=== PATIENT | female | born 1955 | race Caucasian/White ===

== ENCOUNTER → 2021-08-18 15:30 | Outpatient (CLI) | payer MEDICARE, OTHER, SELFPAY ==
--- NOTE | ~2021-08-18 | XR_ITS ---
XR chest 2V DATE: 08/18/2021 15:54 INDICATION: Shortness of breath TECHNIQUE: 2 views COMPARISON: None FINDINGS: There is a large hiatal hernia. 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 Heart size appears within normal range. No hilar or med iastinal enlargement. No pulmonary infiltrate or consolidation, pleural effusion or pulmonary vascula r congestion or pneumothorax is detected. Stenosis anterior cervical spine surgical fusion. IMPRESSION: No active cardiopulmonary disease Large hiatal hernia Reviewed, dictated and finalized at location A. ACCOUNT MANAGER
== END ==
PROVIDERS: PCP Family Medicine; Visit Provider Physician Assistant
DX: R06.02 Shortness of breath (principal); K44.9 Diaphragmatic hernia without obstruction or gangrene
CPT/HCPCS: 71046

== ENCOUNTER → 2021-09-03 10:12 | Outpatient (CLI) | payer MEDICARE, OTHER, SELFPAY ==
--- NOTE | ~2021-09-03 | XR_ITS ---
EXAMINATION: XR UGIAC wo kub DATE: 09/03/2021 10:58 INDICATION: Diaphragmatic hernia without obstruction TECHNIQUE: Thick barium contrast with gas effervescent crystals were administered orally. Fluoroscop ic images of the esophagus, stomach, and proximal duodenum were obtained in various projections. The reafter, overhead images of the abdomen were performed. 1.2 minutes of fluroscopy. DAP 10.2. 59 image s. FINDINGS: No prior studies for comparison. There are tertiary contractions of the distal esophagus with mild disordered peristalsis distally. No obstruction. There is a moderate size paraesophageal hernia. Reflux is noted in the esophagus. The gastric folds are normal. The proximal duodenum is also normal in appearance. IMPRESSION: 1. Moderate-sized paraesophageal hernia with gastroesophageal reflux. 2: Tertiary contractions of the distal esophagus with mildly disordered peristalsis. No obstruction. Reviewed, dictated and finalized at location B. IMPRESSION: 1. Moderate-sized paraesophageal hernia with gastroesophageal reflux. 2: Tertiary contractions of the distal esophagus with mildly disordered perist alsis. No obstruction.
== END ==
PROVIDERS: PCP Family Medicine; Visit Provider Surgery
DX: K44.9 Diaphragmatic hernia without obstruction or gangrene (principal); K21.9 Gastro-esophageal reflux disease without esophagitis; R13.10 Dysphagia, unspecified
CPT/HCPCS: 74246

== ENCOUNTER 2021-09-09 00:17 | Day surgery (SDC) | payer MEDICARE, OTHER, SELFPAY ==
[2021-08-27 14:59] VITALS: BMI 34.2
[2021-09-09 09:30] VITALS: BP 149/80; PULSE 78; RESP 18; TEMP 36.3; O2SAT 98
[2021-09-09] MEDS: LACTATED RINGERS 1,000 ML 150 ML IV CONT (09:44)
--- NOTE | 2021-09-09 09:44 | WPDANESEPPF ---
Anes - Initial Pre Proc Eval Procedure: Operation Date: 09/09/21 10:45 Proposed Procedures p Esophagogastroduodenoscopy & Screening Colonoscopy - Gulshan Paz MD Date/Time: 09/09/21 09:44 Surgeon: Gulshan Paz MD Pre Op Diagnosis: neoplasm screening Patient Data Age: 66 Gender: F Height: 1.63 m Weight: 91.2 kg Last Vital Signs Temp 36.3 C L 09/09/21 09:30 Pulse 78 09/09/21 09:30 Resp 18 09/09/21 09:30 BP 149/80 H 09/09/21 09:30 Pulse Ox 98 09/09/21 09:30 Allergies Allergy/AdvReac Type Severity Reaction Status Date / Time Iodine and Iodide Containing Allergy Unknown Verified 09/09/21 09:21 Produc Home Medications Medication Instructions Recorded Confirmed Type furosemide 40 mg tablet 40 mg PO QAM #90 tablet 08/02/20 09/09/21 Rx potassium chloride 10 mEq 10 meq PO DAILY #90 tablet 08/02/20 09/09/21 Rx tablet,extended release Bifidobacterium infantis 4 mg 4 mg PO DAILY 03/26/21 09/09/21 History capsule ergocalciferol (vitamin D2) 1,250 1,250 mcg PO WEEKLY #12 cap 03/26/21 09/09/21 Rx mcg (50,000 unit) capsule rosuvastatin 20 mg tablet 20 mg PO DAILY #90 tablet 03/26/21 09/09/21 Rx albuterol sulfate 90 mcg/actuation See Rx Instructions .ROUTE 06/18/21 09/09/21 Rx aerosol inhaler .COMPLEX #25.5 g montelukast 10 mg tablet 10 mg PO DAILY #90 tablet 07/05/21 09/09/21 Rx escitalopram oxalate 20 mg tablet 20 mg PO DAILY #90 tablet 08/01/21 09/09/21 Rx levothyroxine 125 mcg tablet 125 mcg PO DAILY #90 tablet 08/01/21 09/09/21 Rx losartan 25 mg tablet 25 mg PO DAILY #90 tablet 08/01/21 09/09/21 Rx pantoprazole 40 mg tablet,delayed 40 mg PO BID #180 tablet 08/01/21 09/09/21 Rx release fluticasone propionate 115 2 puff INHALATION BID #12 g 08/18/21 09/09/21 Rx mcg-salmeterol 21 mcg/actuation HFA inhaler alprazolam 0.5 mg PO DAILY PRN 08/27/21 09/09/21 History Patient hx anesthesia problems: post op nausea/vomiting Family hx anesthesia problems: none Results Review: All pre-operative results and documents have been reviewed as part of the pre-operative evaluation. [facility] Past Medical History Medical History Anxiety Chronic allergic rhinitis Gastroesophageal reflux History of ovarian cyst Hx of endometriosis Hyperlipidemia Hypertension Hypothyroidism Iron deficiency anemia Irritable bowel syndrome Spinal stenosis Surgical History Surgical History H/O cervical discectomy H/O: hysterectomy History of appendectomy History of esophagogastroduodenoscopy (EGD) History of incisional hernia repair Date unknown - incision from previous emergent History of tonsillectomy Hx of section Hx of neck surgery S/p bilateral myringotomy with tube placement Family History Family History Father Hypertension Heart disease Hyperlipidemia Depression Malignant neoplasm of prostate Cerebrovascular accident Sibling Hypertension Hyperlipidemia Depression Cerebrovascular accident Sibling Depression Bipolar disorder Hypertension Hyperlipidemia Other Kidney stone Seizure Skin cancer Social History Social History Smoking status: Never smoker Second hand tobacco smoke exposure: No Alcohol intake: current Drinks per week: 7 Alcohol use details: wine Substance use: never Substance use type: does not use Living arrangements: with family Gender identity (if verbalized by the patient): Female Spiritual care concerns: No Anes - Eval Final PreProcedure Day of Procedure 09/09/21 09:44 Patient weight: obese Heart: regular rate and rhythm Lungs: clear to auscultation Airway: Mallampati scale class II Neurological: alert and oriented Last oral intake: >/= 8 hours ASA classificat
--- NOTE | 2021-09-09 09:51 | WPDGICN ---
Assessment and Plan Assessment and plan (1) Paraesophageal hiatal hernia: Code(s): K44.9 - Diaphragmatic hernia without obstruction or gangrene Status: Acute Assessment and Plan: Patient recently found to have paraesophageal hiatal hernia. Surgical repair is being considered. EGD is requested prior to this. (2) Gastroesophageal reflux: Qualifiers: Esophagitis presence: esophagitis presence not specified Qualified Code(s): K21.9 - Gastro-esophageal reflux disease without esophagitis Code(s): K21.9 - Gastro-esophageal reflux disease without esophagitis Status: Acute Assessment and Plan: Patient has ongoing chronic GE reflux disease. Currently maintained on pantoprazole 40mg p.o. b.i.d. with resolution of heartburn and reflux. Plan to continue this medication. Because of chronicity of symptoms an EGD will be performed. Also to evaluate hiatal hernia. (3) History of colon polyps: Code(s): Z86.010 - Personal history of colonic polyps Status: Acute Assessment and Plan: Patient with history of recurrent colon polyps on multiple occasions in the past. Plan is for surveillance colonoscopy now and at 3 year intervals in the future. GI Consult Note Consult date/time: 09/09/21 09:51 HPI: Brigid Barrios is a 66 year old female Presents for GI endoscopy with both EGD and colonoscopy. Patient has a distant history of colon polyps in the past she. Previously followed in [place] she has had multiple colonoscopies. She states polyps were found at every exam. Most recent colonoscopy 3 years ago revealed colon polyps. Patient reports that her current weight appetite and bowel movements are normal. She denies abdominal pain. She has had no bleeding. Family history is noncontributory. Patient does have history of acid reflux disease as well. She chronically takes pantoprazole 40mg p.o. daily for control of this. She recently experienced a bout of bronchitis and COVID. Because of prolonged shortness of breath a CT scan was performed. This revealed a hiatal hernia. Upper GI was subsequently performed revealing a paraesophageal type hiatal hernia. Surgery has been consulted in the an EGD is requested prior to surgical consideration. Review of Systems Review of Systems: All systems reviewed & are unremarkable except as noted in HPI and below PMFSH Past Medical History Medical History Anxiety Chronic allergic rhinitis Gastroesophageal reflux History of ovarian cyst Hx of endometriosis Hyperlipidemia Hypertension Hypothyroidism Iron deficiency anemia Irritable bowel syndrome Spinal stenosis Surgical History Surgical History H/O cervical discectomy H/O: hysterectomy History of appendectomy History of esophagogastroduodenoscopy (EGD) History of incisional hernia repair Date unknown - incision from previous emergent History of tonsillectomy Hx of section Hx of neck surgery S/p bilateral myringotomy with tube placement Family History Family History Father Hypertension Heart disease Hyperlipidemia Depression Malignant neoplasm of prostate Cerebrovascular accident Sibling Hypertension Hyperlipidemia Depression Cerebrovascular accident Sibling Depression Bipolar disorder Hypertension Hyperlipidemia Other Kidney stone Seizure Skin cancer Social History Social History Smoking status: Never smoker Second hand tobacco smoke exposure: No Alcohol intake: current Drinks per week: 7 Alcohol use details: wine Substance use: never Substance use type: does not use Living arrangements: with family Gender identity (if verbalized by the patient): Female Spiritual car
--- NOTE | 2021-09-09 10:59 | SUR.OPER ---
EGD end: 105 COLONOSCOPY start: 1058
[2021-09-09 11:15] VITALS: BP 128/76; PULSE 69; RESP 18; O2SAT 98
[2021-09-09 11:25] VITALS: BP 143/87; PULSE 66; RESP 19; O2SAT 97
[2021-09-09 11:35] VITALS: BP 157/68; PULSE 65; RESP 21; O2SAT 98
== END 2021-09-09 11:49 | disposition home or self-care (01) ==
PROVIDERS: PCP Family Medicine; Visit Provider Internal Medicine Gastroenterology
PROC: 0DJ08ZZ Inspection of Upper Intestinal Tract, Via Natural or Artificial Opening Endoscopic (ICD-10-PCS; CPT 43235; principal; 2021-09-09 10:45)
DX: Z12.11 Encounter for screening for malignant neoplasm of colon (principal); D12.3 Benign neoplasm of transverse colon; K57.30 Diverticulosis of large intestine without perforation or abscess without bleeding; K64.8 Other hemorrhoids; K44.9 Diaphragmatic hernia without obstruction or gangrene; K21.9 Gastro-esophageal reflux disease without esophagitis; F41.9 Anxiety disorder, unspecified; E78.5 Hyperlipidemia, unspecified; I10 Essential (primary) hypertension; E03.9 Hypothyroidism, unspecified; D50.0 Iron deficiency anemia secondary to blood loss (chronic); N80.9 Endometriosis, unspecified; K58.9 Irritable bowel syndrome, unspecified; M48.00 Spinal stenosis, site unspecified; Z86.16 Personal history of COVID-19; Z79.51 Long term (current) use of inhaled steroids; E66.9 Obesity, unspecified; Z68.34 Body mass index [BMI] 34.0-34.9, adult
CPT/HCPCS: 45385; 43235; 88305; J2704; J7120

== ENCOUNTER 2021-10-22 09:17 | Outpatient (CLI) | payer MEDICARE, OTHER, SELFPAY ==
--- NOTE | 2021-10-22 09:32 | ECG_ITS ---
Measurements Intervals [place] Rate: 66 P: 14 [place]: 173 QRS: 14 QRSD: 86 T: 56 QT: 373 QTc: 393 Interpretive Statements SINUS RHYTHM LEFT VENTRICULAR HYPERTROPHY BASELINE ARTIFACT- I, III, AVR, AVL, AVF, V4 BORDERLINE ECG Electronically Signed On 10-22-2021 9:57:31 CDT by Jagdish Avila D.O.
[2021-10-22 10:00] LABS: Anion Gap 5 mmol/L (8-16); Blood Urea Nitrogen 21 mg/dL (7-17); Calcium 8.8 mg/dL (8.4-10.2); Carbon Dioxide 29 mmol/L (22-30); Chloride 105 mmol/L (98-107); Estimated Glomerular Filt Rate > 60; Glucose 122 mg/dL (65-110); Potassium 4.4 mmol/L (3.4-5.0); Sodium 139 mmol/L (137-145)
== END 2021-10-22 09:18 | disposition home or self-care (01) ==
PROVIDERS: Anesthesiology; PCP Family Medicine; Visit Provider Surgery
DX: Z01.818 Encounter for other preprocedural examination (principal); K44.9 Diaphragmatic hernia without obstruction or gangrene; I10 Essential (primary) hypertension
CPT/HCPCS: 36415; 80048; 86850; 86900; 86901; 93005

== ENCOUNTER 2021-11-01 14:20 | Observation (INO) | payer MEDICARE, OTHER, SELFPAY ==
--- NOTE | 2021-10-16 13:48 | PC.NURSE ---
Report to the Outpatient Waiting Room, entrance under the green pavilion located off [facility], at time _0600 on date _10/31/21 . OR Time: _729 . - You and your visitor will be asked a series of questions to screen for COVID 19 for your protection. - Only one visitor is allowed at this time. - The patient visitor is requested to leave or wait in car when not with patient. - A mask is required within the hospital. Patients may have clear liquids (water, carbonated beverages, clear teas, apple juice) until 3 hours prior to surgery with a maximum of 20 ounces. - No food from midnight until time of surgery - Infants may have breast milk until 4 hours before surgery, infant formula 6 hours prior to surgery. - Children will be allowed to drink immediately following surgery. If applicable, please bring a bottle or sippy cup to assist with drinking. Juice, water, soda, and popsicles are readily available. For infants on formula, please bring formula the day of surgery. Pacifiers are allowed. Take the following medications with a SIP of water the morning of surgery: __INHALER,ALPROAZOLAM,ESCITALOPRAM,,LEVOTHYROXINE Medications to discontinue per physician ALL VITAMINS AND SUPPLEMENTS 3 DAYS PRE OP Date to take last dose___10/27/21 HIBICLENS SHOWER MORNING OF SURGERY Please no make-up, nail yakut, hairspray, perfume, deodorant, or body powder the day of surgery. No jewelry (including any body piercings) or valuables the day of surgery, leave them at home. Please take a shower or bath the night before, or the morning of, surgery with an antibacterial soap. Wear comfortable, loose fitting clothing. Children are encouraged to wear pajamas. - Jewelry must be removed prior to entering the operating room. Rings and piercings that are not removed may be cut off. - The hospital will not accept responsibility for valuables. - Please leave all valuables, including medications, at home the day of surgery. If you are going home after surgery, a licensed jitney driver must drive you home. - NO public transportation without another adult. - We recommend that an adult stay with you for 24 hours following discharge. - We also recommend that you do not drive, make important decision, drink alcoholic beverages, or take any drugs that were not prescribed by your health care provider for at least 24 hours after your discharge time. For Pediatric surgeries, we recommend two adults accompany the child home (only one inside the building at this time). Follow any additional instructions given to you from your surgeon. If you or anyone in your household have experienced Covid symptoms in the past week, please notify your surgeon or the nurse liaison at the phone number below for possible testing. Telephone instructions given to _PATIENT and asked if any additional questions and then verbalized understanding. Patient advised to call surgeon office or pre surgery nurse liaison [phone] if any additional questions.
[2021-10-16 13:57] VITALS: BMI 34.1
[2021-10-31] VITALS (22 sets, daily range): BP systolic 134–185; BP diastolic 63–97; PULSE 67–99; RESP 12–20; TEMP 36.2–37; O2SAT 94–98
--- NOTE | 2021-10-31 06:29 | WPDANESEPPF ---
Anes - Initial Pre Proc Eval Procedure: Operation Date: 10/31/21 07:30 Proposed Procedures p Laparoscopic Paraesophageal Hernia Repair with Rachael Fundoplication - Stu Santana DO Date/Time: 10/31/21 06:29 Surgeon: Stu Santana DO Pre Op Diagnosis: paraesophageal hiatal hernia Patient Data Age: 66 Gender: F Height: 1.63 m Weight: 90.26 kg Allergies Allergy/AdvReac Type Severity Reaction Status Date / Time Iodine and Iodide Containing Allergy Severe Hives Verified 10/31/21 06:06 Produc Home Medications Medication Instructions Recorded Confirmed Type furosemide 40 mg tablet 40 mg PO QAM #90 tablet 08/02/20 10/31/21 Rx Bifidobacterium infantis 4 mg 4 mg PO DAILY 03/26/21 10/31/21 History capsule ergocalciferol (vitamin D2) 1,250 1,250 mcg PO WEEKLY #12 cap 03/26/21 10/31/21 Rx mcg (50,000 unit) capsule rosuvastatin 20 mg tablet 20 mg PO DAILY #90 tablet 03/26/21 10/31/21 Rx albuterol sulfate 90 mcg/actuation See Rx Instructions .ROUTE 06/18/21 10/31/21 Rx aerosol inhaler .COMPLEX #25.5 g alprazolam 0.5 mg PO PRN PRN 08/27/21 10/31/21 History fluticasone propionate 115 2 puff INHALATION BID #12 g 09/15/21 10/31/21 Rx mcg-salmeterol 21 mcg/actuation HFA inhaler potassium chloride 10 mEq 10 meq PO DAILY #90 tablet 10/28/21 10/31/21 Rx tablet,extended release escitalopram oxalate 20 mg tablet See Rx Instructions .ROUTE 10/30/21 10/31/21 Rx .COMPLEX #90 tablet levothyroxine 125 mcg tablet See Rx Instructions .ROUTE 10/30/21 10/31/21 Rx .COMPLEX #90 tablet losartan 25 mg tablet See Rx Instructions .ROUTE 10/30/21 10/31/21 Rx .COMPLEX #90 tablet montelukast 10 mg tablet See Rx Instructions .ROUTE 10/30/21 10/31/21 Rx .COMPLEX #90 tablet pantoprazole 40 mg tablet,delayed See Rx Instructions .ROUTE 10/30/21 10/31/21 Rx release .COMPLEX #180 tablet Patient hx anesthesia problems: none Family hx anesthesia problems: none Results Review: All pre-operative results and documents have been reviewed as part of the pre-operative evaluation. [facility] Past Medical History Medical History Anxiety Chronic allergic rhinitis Gastroesophageal reflux History of ovarian cyst Hx of endometriosis Hyperlipidemia Hypertension Hypothyroidism Iron deficiency anemia Irritable bowel syndrome Spinal stenosis Surgical History Surgical History H/O cervical discectomy H/O: hysterectomy History of appendectomy History of esophagogastroduodenoscopy (EGD) History of incisional hernia repair Date unknown - incision from previous emergent History of tonsillectomy Hx of section Hx of neck surgery S/p bilateral myringotomy with tube placement Family History Family History Father Hypertension Heart disease Hyperlipidemia Depression Malignant neoplasm of prostate Cerebrovascular accident Sibling Hypertension Hyperlipidemia Depression Cerebrovascular accident Sibling Depression Bipolar disorder Hypertension Hyperlipidemia Other Kidney stone Seizure Skin cancer Social History Social History Smoking status: Never smoker Second hand tobacco smoke exposure: No Alcohol intake: current Drinks per week: 7 Alcohol use details: wine Substance use: never Substance use type: does not use Living arrangements: with family Gender identity (if verbalized by the patient): Female Spiritual care concerns: No Anes - Eval Final PreProcedure Day of Procedure 10/31/21 06:29 Patient weight: obese Heart: regular rate and rhythm Lungs: clear to auscultation Airway: Mallampati scale class II Neurological: alert and oriented Last oral intake: >/= 8 hours ASA classification: III Emergent: no Anesthetic plan: pro
[2021-10-31] MEDS: ACETAMINOPHEN 500 MG TABLET 1000 MG PO (06:47)
[2021-10-31] MEDS: LACTATED RINGERS 1,000 ML 30 ML IV CONT ×2 (06:55→10:40)
[2021-10-31] MEDS: KETOROLAC 15 MG/ML VIAL (*BKC) IV PUSH (06:59)
--- NOTE | 2021-10-31 07:15 | WPDHPUPDATE1 ---
History and Physical Update Update Date/Time: 10/31/21 07:15 History and Physical has been reviewed, including an updated exam of the patient. There are NO changes in the patient's condition. Risks, benefits, and alternatives have been discussed and questions answered. Patient agrees to proceed with procedure.
[2021-10-31] MEDS: ceFAZolin 2 GM/D5W 50 ML 2 GM/50 ML BAG IVPB ×3 (07:29→22:25)
[2021-10-31] MEDS: BUPIVACAINE HCL 0.5% PF 30 ML VIAL INFILTRATE (10:16)
--- NOTE | 2021-10-31 10:50 | W.PM.PROC2 ---
Procedure Note - Detailed Date of Procedure 10/31/21 Pre-op Diagnosis paraesophageal hiatal hernia Post-op Diagnosis Same Procedure Performed Laparoscopic paraesophageal hernia repair with Rachael fundoplication Surgeon Stu Santana DO Skip Hoist Operator Ramos Walsh MD Anesthesia General and Local (0.5% bupivicaine) Indications This is a 66-year-old woman who presented with epigastric and substernal chest pain after eating. A chest x-ray was obtained on 08/18/2021 which showed evidence of a large hiatal hernia. An air-contrast upper GI on 09/03/2021 confirmed moderate-sized hiatal hernia containing stomach with reflux. She underwent EGD and colonoscopy on 09/09/2021. No significant esophagitis or other abnormalities were found besides the hiatal hernia. Manometry then confirmed normal peristalsis in the esophagus, but she did have a slightly hypertensive lower esophageal sphincter. Discussions were made with the patient about treatment options and decision was made to proceed with laparoscopic paraesophageal hernia repair with Rachael fundoplication. Findings Patient was found to have a large hiatal hernia containing the fundus and upper body of her stomach. The hernia sac and stomach was reduced to bring the esophagus down into the abdominal cavity with enough length to perform the fundoplication. The hiatal hernia was closed using 0 Ethibond simple interrupted sutures. This was kept fairly loose to prevent any significant dysphagia or esophageal dysmotility. A 360 degree fundoplication was then performed over a 60 Swedish bougie. The fundoplication appeared in proper position with laxity to the wrap once the bougie was removed. No other intra-abdominal abnormalities were noted. Description of Procedure Procedure as well as risks, benefits, and alternatives were discussed with the patient. Written consent was obtained and placed in chart prior to procedure. Patient was brought back to surgical suite. He was placed supine on operating table. Time-out was done to confirm patient and procedure. He was then intubated by the anesthesia department. His abdomen was prepped and draped in sterile fashion using chlorhexidine prep. A 5 mm incision was made in the left upper quadrant at the costal margin and a 5 mm Optiview trocar was then advanced through the abdominal layers under direct visualization. Once inside the peritoneal cavity, carbon dioxide insufflation was used to create a pneumoperitoneum. The camera was inserted in the abdominal cavity was inspected. No abnormalities were noted initially. The patient was then placed in reverse Trendelenburg position. An 11 mm incision was made about 2 cm superior to the umbilicus and just to the left of midline and an 11 mm trocar was advanced under direct visualization. Two more 11 mm trocars were placed in the upper abdomen just below the costal margin. The patient was placed in reverse Trendelenburg position. A 5 mm incision was made in the subxiphoid region and a Rola liver retractor was advanced into the abdominal cavity and the left lobe of the liver was gently retracted anteriorly to visualize the diaphragm. The hiatal hernia was visualized. I began my dissection along the gastrohepatic ligament. The gastrohepatic ligament was carefully taken down through the clear opening using LigaSure bipolar cautery. This was extended up to the level of the right hal. The hernia sac was then carefully retracted and the hernia sac was scored along the inner edge of the right hal. This dissection was then continued in a clockwise fashion along the right hal and then onto the diaphragm and left hal. The hernia sac was then carefully dissected from within the mediastinum using blunt dissection and LigaSure bipolar cautery. Care was then also performed to extend this dissection posteriorly and identify the crossing fibers of the left hal posteriorly. I then took down the short gastric vessels with LigaSure
--- NOTE | 2021-10-31 11:15 | SUR.PHASEI ---
1040 -Sofya, CLAY MINER at bedside. pt opens eyes to verbal stimuli. assessing lung sounds and respiratory needs
--- NOTE | 2021-10-31 11:16 | SUR.PHASEI ---
1111 - Dr. Chen at bedside. assessing lung sounds and pt's orientation. pt opens eyes and attempts to cough when asked. chest xray ordered
--- NOTE | 2021-10-31 11:23 | SUR.PHASEI ---
1117 - xray at bedside obtaining chest xray
--- NOTE | 2021-10-31 11:26 | SUR.PHASEI ---
1125 - pt follows commands. attempts to cough when asked. pt denies pain at this time. awaiting chest xray results
--- NOTE | 2021-10-31 11:35 | SUR.PHASEI ---
1135 - Sofya, REMANUFACTURING TECHNICIAN at bedside assessing pt
[2021-10-31] MEDS: fentaNYL CITRATE INJ (*CRX) 100 MCG/2 ML VIAL 25 MCG IV PUSH ×5 (12:35→12:57)
[2021-10-31] MEDS: HYDROcodone/acetaminophen (*CRX) 10-325 MG TABLET 1 TAB PO ×2 (14:07→20:03)
--- NOTE | 2021-10-31 14:12 | ADMGEN ---
This patient, Brigid Barrios, was admitted to 2 Medical Room 246-01. Patient/family oriented to hospital policies and general routines including ID bracelet, bed and alarms, visiting hours, pain management, procedures, bathroom and other care routines, personal items, smoking policy, room service/diet, and visiting hours. Information on how to activate the Rapid Response Team has been discussed. Patient/Family are encouraged to report perceived risks to care and to ask questions if they do not understand what they are told or what they should do.
[2021-10-31] MEDS: LACTATED RINGERS 1,000 ML 100 ML IV CONT (15:00)
[2021-10-31] MEDS: ACETAMINOPHEN 500 MG TABLET PO ×2 (17:10→23:50)
[2021-10-31] MEDS: FLUTICASONE/SALMETEROL 115-21 MCG INHALER 1 PUFF 2 PUFF INHALATION (19:37)
[2021-10-31] MEDS: PANTOPRAZOLE 40 MG TABLET PO (20:03)
[2021-10-31] MEDS: MONTELUKAST SODIUM 10 MG TABLET BY MOUTH (20:03)
[2021-10-31] MEDS: ALPRAZolam (*CRX) 0.5 MG TABLET PO (23:52)
[2021-11-01] VITALS (9 sets, daily range): BP systolic 118–165; BP diastolic 60–80; PULSE 63–76; RESP 14–20; TEMP 36.4–36.9; O2SAT 93–98
--- NOTE | ~2021-11-01 | XR_ITS ---
XR chest 1V portable 10/31/2021 11:24 Indication: Diminished lung sounds. Dyspnea Procedure: AP portable chest Comparison: 08/18/2021 Findings: Cardiomegaly with mild interstitial edema. Small pleural effusions. No pneumothorax. No acu te osseous abnormality. Impression: 1: Cardiomegaly with mild interstitial edema. Reviewed, dictated and finalized at location A. Impression: 1: Cardiomegaly with mild interstitial edema.
[2021-11-01] MEDS: HYDROcodone/acetaminophen (*CRX) 5-325 MG TABLET 1 TAB PO ×3 (04:32→21:04)
[2021-11-01] MEDS: LEVOTHYROXINE SODIUM 125 MCG TABLET PO (05:43)
[2021-11-01] MEDS: ACETAMINOPHEN 500 MG TABLET PO ×3 (05:43→23:46)
[2021-11-01] MEDS: FLUTICASONE/SALMETEROL 115-21 MCG INHALER 1 PUFF 2 PUFF INHALATION ×2 (06:20→19:41)
[2021-11-01 06:57] LABS: Hemoglobin 10.1 g/dL (12.0-15.0); Mean Corpuscular HGB Conc 29.7 g/dl (32-36); Mean Corpuscular Hemoglobin 25.2 pg (26-34); Mean Corpuscular Volume 84.8 fl (80-100); Mean Platelet Volume 10.3 fl (7.4-10.4); Platelet Count Result 267 k/mm3 (150-375); Red Blood Count 4.01 M/mm3 (4.2-5.4); Red Cell Distribution Width 18.8 % (11.5-14.5)
[2021-11-01] MEDS: ceFAZolin 2 GM/D5W 50 ML 2 GM/50 ML BAG IVPB (07:01)
[2021-11-01 07:26] LABS: Anion Gap 5 mmol/L (8-16); Blood Urea Nitrogen 16 mg/dL (7-17); Calcium 8.2 mg/dL (8.4-10.2); Carbon Dioxide 29 mmol/L (22-30); Chloride 103 mmol/L (98-107); Estimated CRCL calculation 64 ml/min; Estimated Glomerular Filt Rate > 60; Glucose 130 mg/dL (65-110); Potassium 4.4 mmol/L (3.4-5.0); Sodium 137 mmol/L (137-145)
[2021-11-01] MEDS: ENOXAPARIN 40 MG/0.4 ML SYRINGE SUB-Q (09:16)
[2021-11-01] MEDS: ROSUVASTATIN 10 MG TABLET 20 MG PO (09:16)
[2021-11-01] MEDS: PANTOPRAZOLE 40 MG TABLET PO (09:16)
[2021-11-01] MEDS: LOSARTAN POTASSIUM 25 MG TABLET BY MOUTH (09:16)
[2021-11-01] MEDS: ESCITALOPRAM OXALATE 10 MG TABLET 20 MG PO (09:16)
--- NOTE | 2021-11-01 11:55 | PCCCNOTE ---
On 10/30/21, the student, [Gretel Castañeda], provided care and completed [facility] documentation on this patient. I have reviewed the student's documentation and agree with the findings.
--- NOTE | 2021-11-01 13:19 | PM.PNGS ---
Progress Note: A&P Assessment and Plan (1) Paraesophageal hiatal hernia: Code(s): K44.9 - Diaphragmatic hernia without obstruction or gangrene Status: Acute Assessment and Plan: Doing well after repair yesterday. Labs look good. She is tolerating clear liquids well. Will advance to full liquid diet. No reflux or heartburn symptoms. No obstructive symptoms. Will increase ambulation. Recheck labs again in a.m.. Possibly home tomorrow. Subjective Subjective Date/Time Seen: 11/01/21 13:19 Post Op day: 1 Patient reports: pain is less, no flatus, no bowel movement and afebrile Interval history: No reflux symptoms. No obstructive symptoms. Tired of clear liquids, would like some full or thicker liquids Exam GI: Inspection: non-distended and incision (Dry and healing well) GI Palp: Yes Soft to palpation and Yes Tenderness to palpation present (GI) (Expected tenderness mostly at incisions) Auscultation: normal bowel sounds Objective Data Vital Signs Vital Signs: Vital Signs - 24 hr 10/31/21 13:30 10/31/21 13:40 10/31/21 14:00 Temperature 37.0 C Pulse Rate 79 78 77 Respiratory Rate 20 20 16 Blood Pressure 151/93 H 153/87 H 163/82 H Pulse Oximetry 96 96 98 10/31/21 14:15 10/31/21 14:38 10/31/21 14:45 Temperature 36.4 C 36.2 C L Pulse Rate 75 73 Respiratory Rate 16 16 Blood Pressure 156/83 H 160/78 H Pulse Oximetry 94 94 95 10/31/21 15:45 10/31/21 18:15 10/31/21 19:40 Temperature 36.6 C 36.4 C L Pulse Rate 70 78 78 Respiratory Rate 16 16 20 Blood Pressure 152/76 H 134/63 Pulse Oximetry 94 96 10/31/21 22:00 11/01/21 00:42 11/01/21 06:00 Temperature 36.9 C 36.4 C 36.4 C Pulse Rate 77 73 76 Respiratory Rate 16 16 14 Blood Pressure 152/74 H 135/62 131/60 Pulse Oximetry 96 93 96 11/01/21 06:23 11/01/21 09:14 11/01/21 11:02 Temperature 36.4 C 36.8 C Pulse Rate 74 74 73 Respiratory Rate 20 16 16 Blood Pressure 160/70 H 145/77 H Pulse Oximetry 98 98 Intake/Output Intake/Output: Intake & Output 10/29/21 10/30/21 10/31/21 11/01/21 23:59 23:59 23:59 23:59 Intake Total 2340 880 Output Total 900 2700 Balance 1440 -1820 Meds/Results Medications: Active Medications Generic Name Dose Route Start Last Admin Trade Name Freq PRN Reason Stop Dose Admin Acetaminophen 500 mg 10/31/21 18:00 11/01/21 12:40 Acetaminophen 500 Mg Tablet PO Not Given Q6HR PEDRO Hydrocodone Bitart/Acetaminophen 1 tab 10/31/21 13:44 11/01/21 12:43 Hydrocodone/Acetaminophen (*Crx) 5-325 Mg Tablet PO 1 tab Q4H PRN Administration Pain Rated 4-6 Hydrocodone Bitart/Acetaminophen 1 tab 10/31/21 13:44 10/31/21 20:03 Hydrocodone/Acetaminophen (*Crx) 10-325 Mg Tablet PO 1 tab Q6H PRN Administration Pain Rated 7-10 Albuterol 2 puff 10/31/21 13:44 Albuterol Sulfate (*Sp) Aerosol 1 Puff INHALATION Q4H PRN SOB/WHEEZING Alprazolam 0.5 mg 10/31/21 13:44 10/31/21 23:52 Alprazolam (*Crx) 0.5 Mg Tablet PO 0.5 mg TID PRN Administration Anxiety Enoxaparin Sodium 40 mg 11/01/21 09:00 11/01/21 09:16 Enoxaparin 40 Mg/0.4 Ml Syringe SUB-Q 40 mg DAILY PEDRO Administration Escitalopram Oxalate 20 mg 11/01/21 09:00 11/01/21 09:16 Escitalopram Oxalate 10 Mg Tablet PO 20 mg DAILY PEDRO Administration Levothyroxine Sodium 125 mcg 11/01/21 06:30 11/01/21 05:43 Levothyroxine Sodium 125 Mcg Tablet PO 125 mcg DAILY@0630 PEDRO Administration Losartan Potassium 25 mg 11/01/21 09:00 11/01/21 09:16 Losartan Potassium 25 Mg Tablet BY MOUTH 25 mg DAILY PEDRO Administration Montelukast Sodium 10 mg 10/31/21 21:00 10/31/21 20:03 Montelukast Sodium 10 Mg Tablet BY MOUTH 10 mg HS PEDRO Administration Morphine Sulfate 2 mg 10/31/21 13:44 Morphine Sulfate (*Crx) 2 Mg/Ml Inj IV PUSH Q2H PRN Pain Rated 4-6 Morphine Sulfate 4 mg 10/31/21 13:44 Morphine Sulfate (*Crx) 4 Mg/Ml Inj I
[2021-11-01] MEDS: MONTELUKAST SODIUM 10 MG TABLET BY MOUTH (21:04)
[2021-11-01] MEDS: ALPRAZolam (*CRX) 0.5 MG TABLET PO (21:04)
[2021-11-02] MEDS: LEVOTHYROXINE SODIUM 125 MCG TABLET PO (06:04)
[2021-11-02] MEDS: ACETAMINOPHEN 500 MG TABLET PO ×2 (06:04→12:04)
[2021-11-02 06:30] LABS: Hematocrit 30.3 % (37.0-47.0); Hemoglobin 9.1 g/dL (12.0-15.0); Mean Corpuscular Hemoglobin 25.6 pg (26-34); Mean Corpuscular Volume 85.4 fl (80-100); Mean Platelet Volume 10.7 fl (7.4-10.4); Platelet Count Result 238 k/mm3 (150-375); Red Blood Count 3.55 M/mm3 (4.2-5.4); Red Cell Distribution Width 19.2 % (11.5-14.5); White Blood Count 6.9 K/mm3 (4.5-10.0)
[2021-11-02 06:49] LABS: Anion Gap 1 mmol/L (8-16); Blood Urea Nitrogen 11 mg/dL (7-17); Calcium 8.1 mg/dL (8.4-10.2); Carbon Dioxide 31 mmol/L (22-30); Chloride 106 mmol/L (98-107); Estimated CRCL calculation 73 ml/min; Estimated Glomerular Filt Rate > 60; Glucose 98 mg/dL (65-110); Potassium 4.1 mmol/L (3.4-5.0); Sodium 138 mmol/L (137-145)
[2021-11-02 07:40] VITALS: BP 165/82; PULSE 69; RESP 18; TEMP 36.7; O2SAT 100
[2021-11-02 08:34] VITALS: PULSE 77; RESP 12
[2021-11-02] MEDS: FLUTICASONE/SALMETEROL 115-21 MCG INHALER 1 PUFF 2 PUFF INHALATION (08:34)
[2021-11-02] MEDS: ROSUVASTATIN 10 MG TABLET 20 MG PO (08:48)
[2021-11-02] MEDS: ESCITALOPRAM OXALATE 10 MG TABLET 20 MG PO (08:48)
[2021-11-02] MEDS: PANTOPRAZOLE 40 MG TABLET PO (08:48)
[2021-11-02] MEDS: ENOXAPARIN 40 MG/0.4 ML SYRINGE SUB-Q (08:48)
[2021-11-02] MEDS: LOSARTAN POTASSIUM 25 MG TABLET BY MOUTH (08:48)
[2021-11-02 10:20] VITALS: BP 161/95; PULSE 70; RESP 16; TEMP 36.8; O2SAT 97
--- NOTE | 2021-11-02 10:20 | PM.DS ---
DS: Admitting Diagnosis Discharge Date 11/02/2021 Admitting Diagnosis paraesophageal hiatal hernia essential hypertension obesity with BMI 35 DS: Discharge Diagnosis Discharge Diagnosis (1) Paraesophageal hiatal hernia: Code(s): K44.9 - Diaphragmatic hernia without obstruction or gangrene Status: Acute (2) Hypertension: Qualifiers: Hypertension type: primary hypertension Qualified Code(s): I10 - Essential (primary) hypertension Code(s): I10 - Essential (primary) hypertension Status: Acute (3) Obesity (BMI 30-39.9): Code(s): E66.9 - Obesity, unspecified Status: Acute DS: Summary Hospital Course Hospital Course: patient is a 66-year-old woman who after having COVID-19 experienced persistent shortness of breath. Imaging revealed a large paraesophageal hiatal hernia. Beside shortness of breath, the patient was also its [place] obstructive symptoms with pain after eating. She also had heartburn. She was prepared for surgery and taken to the operating room on 10/29/[address] Santana. she underwent repair of the paraesophageal hiatal hernia with Rachael fundoplication. Postoperatively. The patient did well. On postop day 1 she was having pain and was unsteady on her feet. She was feeling much better on postoperative day 2. She was tolerating full liquids quite well. Labs were satisfactory. She was able to be discharged in good condition on postop day 2. 11/02/2021. Status at Discharge Functional status at discharge: independent ambulation Overall status at discharge: patient is progressing back to baseline Time Spent with Patient Time attestation: Total time spent providing and/or coordinating discharge services: Time spent: Less than 30 minutes Exam GI: Inspection: non-distended, incision ( All incisions healing well) and obesity GI Palp: Yes Soft to palpation and Yes Tenderness to palpation present (GI) Auscultation: normal bowel sounds DS: Data Data Completed and Pending Labs on day of discharge: Labs from last 24 hours 11/02/21 11/02/21 05:54 05:54 WBC 6.9 RBC 3.55 L Hgb 9.1 L Hct 30.3 L MCV 85.4 MCH 25.6 L MCHC 30.0 L RDW 19.2 H Plt Count 238 MPV 10.7 H Sodium 138 Potassium 4.1 Chloride 106 Carbon Dioxide 31 H Anion Gap 1 L BUN 11 D Creatinine 0.70 Estim Creat Clear Calc 73 Estimated GFR > 60 Glucose 98 Calcium 8.1 L Discharge Plan Discharge Attending physician on discharge: Stu Santana Discharging Clinician: Ramos Walsh Anticipated Discharge Date/Time: 11/02/21 10:25 Patient Disposition: Home, Self-Care Activity: may shower, no straining and as tolerated Diet: low fiber Wound Care Instructions: incision open to air Discharge Instructions: Ambulate 3-4 x per day and as tolerated. No lifting over 15-20lbs. May bathe or shower. Stairs are OK. May drive a car in 3 days. full liquid diet initially but if tolerating I can try low-fiber or very soft foods that do not require chewing. Stand Alone Forms: General Discharge Instructions Follow-up/Referrals: Stu Santana, [Physician] - 2 Weeks ( Call office to make appointment for approximately 2 weeks.) Discharge Medications: New hydrocodone-acetaminophen 5-325 mg tablet 1 - 2 tablet PO Q6H PRN (Reason: pain) Qty: 20 RF: 0 ibuprofen 600 mg tablet 600 mg PO Q6H PRN (Reason: pain) Qty: 14 RF: 0 Continued furosemide 40 mg tablet 40 mg PO QAM Qty: 90 RF: 3 Align 4 mg capsule 4 mg PO DAILY RF: 0 ergocalciferol (vitamin D2) [Vitamin D2] 1,250 mcg (50,000 unit) capsule 1,250 mcg PO WEEKLY Qty: 12 RF: 2 rosuvastatin 20 mg tablet 20 mg PO DAILY Qty: 90 RF: 3 alprazolam 0.5 mg tablet 0.5 mg PO PRN PRN (Reason: Anxiety) RF: 0 albuterol sulfate 90 mcg/actuation HFA aerosol inhaler See Rx Instructions .ROUTE .COMPLEX Qty: 25.5 RF: 0
== END 2021-11-02 14:20 | disposition home or self-care (01) ==
LOC: ANHSURGERY 14:27 → ANH2MED 11-02 10:26
PROVIDERS: Admitting Provider Surgery; PCP Family Medicine; Visit Provider Surgery
PROC: 0DV44ZZ Restriction of Esophagogastric Junction, Percutaneous Endoscopic Approach (ICD-10-PCS; CPT 43281; principal; 2021-10-31 07:30)
DX: K44.9 Diaphragmatic hernia without obstruction or gangrene (principal); K21.9 Gastro-esophageal reflux disease without esophagitis; I10 Essential (primary) hypertension; E66.9 Obesity, unspecified; Z68.34 Body mass index [BMI] 34.0-34.9, adult; E03.9 Hypothyroidism, unspecified; E78.5 Hyperlipidemia, unspecified
CPT/HCPCS: 43281; 36415; 71045; 80048; 85027; 94640; A9270; C1713; G0378; J0690; J1100; J1170; J1650; J1885; J2250; J2405; J2704; J2710; J3010; J7030; J7120

== ENCOUNTER 2022-09-08 10:36 | Outpatient (CLI) | payer MEDICARE, OTHER, SELFPAY ==
[2022-09-08 11:57] LABS: Alanine Aminotransferase 77 U/L (6-35); Alkaline Phosphatase 87 U/L (38-126); Anion Gap 4 mmol/L (8-16); Aspartate Amino Transferase 60 U/L (14-36); Bilirubin,Total 0.7 mg/dL (0.2-1.3); Blood Urea Nitrogen 20 mg/dL (7-17); Calcium 8.5 mg/dL (8.4-10.2); Carbon Dioxide 30 mmol/L (22-30); Chloride 106 mmol/L (98-107); Cholesterol 271 mg/dL (0-200); Estimated Glomerular Filt Rate > 60; Glucose 114 mg/dL (65-110); HDL Direct 61 mg/dL; Potassium 4.4 mmol/L (3.4-5.0); Sodium 140 mmol/L (137-145); Triglycerides 110 mg/dL (<150)
[2022-09-08 12:08] LABS: LDL Cholesterol Direct 177 mg/dL
[2022-09-08 12:30] LABS: Hemoglobin A1C 5.8 % (<5.7)
[2022-09-08 12:47] LABS: Free T4 Free Thyroxine 1.29 ng/mL (0.78-2.19)
== END 2022-09-08 10:37 | disposition home or self-care (01) ==
LOC: ANHLAB 10:39
PROVIDERS: PCP Family Medicine; Visit Provider Physician Assistant
DX: E03.9 Hypothyroidism, unspecified (principal); E11.9 Type 2 diabetes mellitus without complications; Z13.1 Encounter for screening for diabetes mellitus; Z13.220 Encounter for screening for lipoid disorders
CPT/HCPCS: 36415; 80053; 80061; 83036; 84439; 84443

== ENCOUNTER 2022-09-16 09:02 | Outpatient (CLI) | payer MEDICARE, OTHER, SELFPAY ==
--- NOTE | ~2022-09-16 | US_ITS ---
Limited Abdominal Sonogram: Real-time sonographic imaging of the right upper quadrant was performed. Clinical History: Abnormal findings of blood chemistry Findings: The liver appears echogenic, with no evidence of mass lesion or bile duct dilatation. Main portal vein demonstrates normal direction of flow. The gallbladder is well distended, and appears no rmal with no evidence of gallstone or wall thickening. The common bile duct measures 6 mm. The visua lized pancreas, aorta, and IVC are unremarkable. Impression: Diffuse fatty infiltration of liver. Reviewed, dictated and finalized at location M. Impression: Diffuse fatty infiltration of liver.
== END 2022-09-16 09:03 ==
PROVIDERS: PCP Family Medicine; Visit Provider Physician Assistant
DX: R79.89 Other specified abnormal findings of blood chemistry (principal); K76.0 Fatty (change of) liver, not elsewhere classified
CPT/HCPCS: 76705

== ENCOUNTER 2022-09-18 09:15 | Outpatient (CLI) | payer MEDICARE, OTHER, SELFPAY ==
--- NOTE | 2022-09-18 11:00 | NEURO_ITS ---
Impression: Patient reports a history of bilateral hand cramping and paresthesias. # Right Carpal Tunnel Syndrome. # Normal needle/EMG exam. # Clinical correlation recommended. Motor Nerve Conduction Upper Extremities Median Nerve Conduction Velocity (m/sec) Terminal Latency (msec) Response Voltage(mV) Elbow-Wrist Wrist Elbow Wrist Right 46 3.3 3 6 Left 51 3.2 3 5 Ulnar Nerve Conduction Velocity (m/sec) Terminal Latency (msec) Response Voltage(mV) Above Elbow Below Elbow Wrist Above Elbow Below Elbow Wrist Right 57 55 2.2 6 6 8 Left 54 55 2.0 5 5 7 F-Wave Latency Median (ms) Ulnar (ms) Right 27.2 26.3 Left 26.1 26.4 Sensory Nerve Conduction Upper Extremities Median Nerve Stimulation Terminal Latency (msec) Wrist/Digit Response Voltage (uV) Wrist Right 4.8/4.5 73/14 Left 2.9/3.1 45/40 Ulnar Nerve Stimulation Terminal Latency (msec) Wrist/Digit Response Voltage (uV) Wrist Right 2.4 32 Left 2.5 23 Radial Nerve Terminal Latency (msec) Response Voltage(mV) Right 1.8 47 Left 1.4 52 Left Right Muscles Examined Fibrillation Fasciculation Scarcity Voltage Duration Left Right Left Right Left Right Left Right Left Right Deltoid Biceps X X Brachioradialis Triceps X X Pronator Teres X X Ext Indicis X X Ext Digitorum X X Abd Poll Brev X X 1st Dorsal Interosseus Abd Dig Min MTDD
== END 2022-09-18 09:16 | disposition home or self-care (01) ==
LOC: ANHNEURO 09:16
PROVIDERS: PCP Family Medicine; Visit Provider Physician Assistant
DX: R20.0 Anesthesia of skin (principal); G56.01 Carpal tunnel syndrome, right upper limb
CPT/HCPCS: 95886; 95911

== ENCOUNTER → 2023-03-04 12:39 | Outpatient (CLI) | payer MEDICARE, OTHER, SELFPAY ==
--- NOTE | ~2023-03-04 | MM_ITS ---
EXAMINATION: MM screening [facility] w roberta HISTORY: Screening mammogram TECHNIQUE: Craniocaudal and mediolateral oblique 3-D tomosynthesis images were obtained and synthetic 2-D images were generated. CAD analysis was submitted and interpreted. COMPARISON: No prior mammogram is available for comparison at this institution. BREAST PARENCHYMAL COMPOSITION: There are scattered areas of fibroglandular density. FINDINGS: Benign-appearing approximately 3.3 x 4.3 mm circumscribed low-density opacity is noted righ t breast (CC Tomosynthesis image ). There is bilateral mammographic asymmetry. This is likely benign fibroglandular asymmetry. Comparison with prior mammogram is recommended. (There is reportedly a prior mammogram at [facility] from .) Otherwise no suspicious mass, architectural distortion, malignant calcification, skin thickening or r etraction is noted. IMPRESSION: 1. Probable benign fibroglandular asymmetry 2. Comparison with prior mammogram is recommended BI-RADS Category 0: Incomplete: Needs additional imaging evaluation: Comparison with prior mammogram. Reviewed, dictated and finalized at location A.
== END ==
PROVIDERS: PCP Family Medicine; Visit Provider Physician Assistant
DX: Z12.31 Encounter for screening mammogram for malignant neoplasm of breast (principal); R92.8 Other abnormal and inconclusive findings on diagnostic imaging of breast
CPT/HCPCS: 77063; 77067

== ENCOUNTER 2023-06-30 11:13 | Outpatient (CLI) | payer MEDICARE, OTHER, SELFPAY ==
--- NOTE | ~2023-06-30 | XR_ITS ---
XR abdomen/kub 1V DATE: 06/30/2023 11:38 INDICATION: Abdominal pressure, bloating. Hyperactive bowel sounds. TECHNIQUE: 2 supine AP views COMPARISON: None FINDINGS: Multiple nondilated gas containing small bowel segments are noted. Nonspecific bowel gas pa ttern without evidence of obstruction. Associated as are intact. No visceromegaly or significant abnormal calcification is noted. IMPRESSION: Nonspecific abdomen Reviewed, dictated and finalized at Location A. Reviewed, dictated and finalized at location B. ODIAL MANAGER IMPRESSION: Nonspecific abdomen
== END 2023-06-30 11:14 | disposition home or self-care (01) ==
PROVIDERS: PCP Family Medicine; Visit Provider Nurse Practitioner
DX: R19.12 Hyperactive bowel sounds (principal); K92.89 Other specified diseases of the digestive system
CPT/HCPCS: 74018

== ENCOUNTER 2023-07-14 13:13 | Inpatient (IN) | payer MEDICARE, OTHER, SELFPAY ==
[2023-07-14] VITALS (43 sets, daily range): BP systolic 116–236; BP diastolic 69–169; PULSE 57–99; RESP 11–28; TEMP 36.5; O2SAT 90–100; BMI 34.9
--- NOTE | ~2023-07-14 | MR_ITS ---
EXAMINATION: MR brain/brain stem wo/w con DATE: 07/15/2023 11:07 INDICATION: Vertigo. Hypertension. TECHNIQUE: Magnetic resonance imaging (MRI) of the brain and brainstem was performed without and with 18 mL Multihance intravenous contrast. Sequences included sagittal and axial T1-weighted SE, axial d iffusion-weighted FS SE, axial 3D SWAN, axial T2*-weighted GRE, axial T2-weighted FLAIR, and axial T2 -weighted FSE. Postcontrast axial and coronal T1-weighted SE was obtained. Apparent diffusion coeffic ient (ADC) maps were created. COMPARISON: Head CT dated 07/14/2023 FINDINGS: There are no areas of restricted diffusion to suggest acute infarction. No intracranial hemorrhage or abnormal intracranial mass lesion. There are scattered areas of nonspecific increased T2-weighted si gnal intensity in the cerebral white matter, predominantly involving the deep and periventricular whi te matter. There are no intraparenchymal signal abnormalities seen on the other pulse sequences. Symm etric prominence of the sulci and subarachnoid spaces overlying the convexities consistent with mild to moderate age-appropriate diffuse cerebral volume loss. The ventricles are symmetric and normal in size. There are no abnormal extra-axial fluid collections. Flow voids are seen in the cerebral arter ies on the T2-weighted sequences consistent with their expected patency. Visualized orbits and soft t issues are unremarkable. Mild mucosal thickening the bilateral ethmoid sinuses. There are no areas of abnormal enhancement on the post contrast images. IMPRESSION: 1. No acute intracranial process or abnormally enhancing brain lesions. 2. Age-related changes including mild to moderate diffuse volume loss and a few scattered foci of non specific white matter T2 hyperintensity which are likely sequela of chronic small vessel ischemic dis ease. Reviewed, dictated and finalized at location A. NCE TEACHER IMPRESSION: 1. No acute intracranial process or abnormally enhancing brain lesions. 2. Age-related changes including mild to moderate diffuse volume loss and a few scattered foci of nonspecific white matter T2 hyperintensity which are likely sequela of chronic small vessel ischemic disease.
--- NOTE | ~2023-07-14 | XR_ITS ---
EXAMINATION: XR chest 1V portable DATE: 07/14/2023 18:39 INDICATION: Pulmonary edema. TECHNIQUE: A single frontal view of the chest was obtained. COMPARISON: Chest single view 10/31/2021 FINDINGS: There is no pneumonia, pleural effusion, or pneumothorax. Calcified hilar and mediastinal l ymph nodes are consistent with old granulomatous disease. There is a prominent left paracardial fat p ad. There are changes of anterior fusion procedure in cervicothoracic spine. IMPRESSION: 1. No acute cardiopulmonary disease. Reviewed, dictated and finalized at location E. LS SQU[employer] POLICE OFFICER
--- NOTE | ~2023-07-14 | US_ITS ---
EXAMINATION: US retroperitoneal duplex ltd DATE: 07/15/2023 18:21 INDICATION: Hypertensive urgency. TECHNIQUE: Multiple grayscale, color Doppler, and pulsed Doppler images of the kidneys and renal alex violeta were obtained. COMPARISON: None. FINDINGS: The aorta peak systolic velocity is 110 cm/s. The right renal artery peak systolic velocity is 83 cm/ s in the proximal segment, 46 cm/s in the mid segment, and 87 cm/s in the distal segment. The left re nal artery peak systolic velocity is 128 cm/s in the proximal segment, 38 cm/s in the mid segment, an d 43 cm/s in the distal segment. IMPRESSION: 1. No Doppler evidence of renal artery stenosis. Reviewed, dictated and finalized at location [facility]. [facility] [employer]
--- NOTE | ~2023-07-14 | CT_ITS ---
EXAMINATION: CT brain wo con DATE: 07/14/2023 16:51 INDICATION: Dizziness. TECHNIQUE: Computed tomography (CT) of the head was performed without intravenous contrast. The mA wa s adjusted according to patient size. Iterative reconstruction technique was employed. The dose-lengt h product was 605.33 mGy-cm. COMPARISON: None FINDINGS: There is no intracranial hemorrhage, acute infarction, or abnormal intracranial mass lesion . The ventricles are normal in size. The orbits are normal. There is mild mucosal thickening in the p aranasal sinuses. The mastoid air cells are normal. IMPRESSION: 1. Normal brain. Reviewed, dictated and finalized at location E. FITTER IMPRESSION: 1. Normal brain.
--- NOTE | 2023-07-14 14:56 | PC.NURSE ---
Pt becoming more symptomatic. increased dizziness and headache is worse. pt brought in to triage and vitals retaken
--- NOTE | 2023-07-14 15:00 | ED.RECABL ---
HPI - Recheck/Abnormal Lab/Rx General Chief Complaint: Recheck/Abnormal Lab/Rx Stated Complaint: high BP Time Seen by Provider: 07/14/23 14:58 Source: patient and family () Mode of arrival: ambulatory Limitations: no limitations History of Present Illness HPI narrative: This is a 68-year-old female presents with concern for high blood pressure. She has a history of hypertension and is on 25 mg losartan daily for this which she did take this morning. She has had a headache since yesterday as well as being lightheaded and dizzy today, nearly losing her balance. Three days ago she did start taking Xifaxan/rifaximin for gut david issues. This is prescribed as t.i.d. but she has been taking has been b.i.d. this was prescribed to her because she has been having GI issues ever since a hiatal hernia surgery/removal 1 year ago. She is scheduled to undergo an EGD on 08/05/2023 and possible esophageal dilatation. Today, she went to the dentist for routine cleaning where she was found to have systolic blood pressure in the 200s and diastolic greater than 100 mm Hg on multiple readings. She was not given any medications at the dentist. She was told to present immediately to the emergency room but she went home 1st and try taking blood pressure multiple times at home and had the same readings. She is also prescribed furosemide but she did not take this today since she knew she would be in the dental chair and didn't want to have to go pee. Other medication includes pantoprazole. Dr Kaplan is her PCP and she saw Dr Keith Pardo's (GI) PHYSICIAN RELATIONS REPRESENTATIVE. No sick contacts. She had diarrhea yesterday. Related Data Home Medications Medication Instructions Recorded Confirmed escitalopram oxalate 20 mg tablet 20 mg PO DAILY 07/14/23 07/14/23 levothyroxine 125 mcg tablet 125 mcg PO DAILY 07/14/23 07/14/23 losartan 25 mg tablet 25 mg PO DAILY 07/14/23 07/14/23 montelukast 10 mg tablet 10 mg PO DAILY 07/14/23 07/14/23 Allergies Allergy/AdvReac Type Severity Reaction Status Date / Time Iodine and Iodide Containing Allergy Severe Hives Verified 07/14/23 09:31 [facility] Past Medical History Medical History Adenomatous colon polyp Anxiety Chronic allergic rhinitis Elevated LFTs US showed fatty liver 08/2022 Endometriosis Gas bloat syndrome Gastroesophageal reflux Hyperactive bowel sounds Hyperlipidemia Hypertension Hypothyroidism Iron deficiency anemia Irritable bowel syndrome with diarrhea Ovarian cyst Pre-diabetes Spinal stenosis Surgical History Surgical History H/O cervical discectomy H/O hernia repair lap paraesophageal hernia repair with Rachael H/O: hysterectomy History of appendectomy History of esophagogastroduodenoscopy (EGD) History of incisional hernia repair Date unknown - incision from previous emergent History of Rachael fundoplication 10/31/21 History of tonsillectomy Hx of section Hx of neck surgery S/p bilateral myringotomy with tube placement Family History Family History Father Hypertension Heart disease Hyperlipidemia Depression Malignant neoplasm of prostate Cerebrovascular accident Alzheimer disease History of quadruple bypass Sibling Hypertension Hyperlipidemia Depression Cerebrovascular accident Sibling Depression Bipolar disorder Hypertension Hyperlipidemia Other Kidney stone Seizure Skin cancer Social History Social History Social History: Surrogate medical decision maker: Gulshan Barrios, spouse. Code status: Full code. Smoking status: Never smoker Second hand tobacco smoke exposure: No Alcohol intake: current Drinks per week: 10 Alcohol use details: wine Substance use: never Substance use type: does not use Do
[2023-07-14 15:33] LABS: Basophils Percent Auto 0.6 % (0.2-1.2); Eosinophils Absolute Auto 0.1 K/mm3 (0-0.3); Hematocrit 45.5 % (37.0-47.0); Hemoglobin 14.6 g/dL (12.0-15.0); Immature Granulocyte Absolute 0.02 K/mm3 (0.00-0.031); Immature Granulocyte Percent A 0.3 % (0-0.5); Lymphocytes Absolute Auto 1.91 K/mm3 (0.9-3.2); Lymphocytes Percent Auto 30.7 % (18.3-44.2); Mean Corpuscular HGB Conc 32.1 g/dl (32-36); Mean Corpuscular Hemoglobin 32.8 pg (26-34); Mean Corpuscular Volume 102.2 fl (80-100); Mean Platelet Volume 10.3 fl (7.4-10.4); Monocytes Absolute Auto 0.4 K/mm3 (0.1-0.6); Monocytes Percent Auto 5.9 % (2.6-8.5); Neutrophils Absolute Auto 3.8 K/mm3 (1.3-6.7); Neutrophils Percent Auto 61.5 % (45.5-73.1); Platelet Count Result 186 k/mm3 (150-375); Red Blood Count 4.45 M/mm3 (4.2-5.4); Red Cell Distribution Width 14.2 % (11.5-14.5); White Blood Count 6.2 K/mm3 (4.5-10.0)
[2023-07-14 15:42] LABS: Alanine Aminotransferase 123 U/L (6-35); Albumin Level 3.9 g/dL (3.5-5.1); Alkaline Phosphatase 99 U/L (38-126); Anion Gap 6 mmol/L (8-16); Aspartate Amino Transferase 85 U/L (14-36); Bilirubin,Total 1.1 mg/dL (0.2-1.3); Blood Urea Nitrogen 16 mg/dL (7-17); Calcium 8.8 mg/dL (8.4-10.2); Carbon Dioxide 27 mmol/L (22-30); Chloride 104 mmol/L (98-107); Estimated CRCL calculation 62 ml/min; Estimated Glomerular Filt Rate > 60; Glucose 121 mg/dL (65-110); Potassium 3.9 mmol/L (3.4-5.0); Sodium 137 mmol/L (137-145)
[2023-07-14 16:01] LABS: Lipase 106 U/L (23-300); Magnesium 2.3 mg/dL (1.6-2.3)
[2023-07-14 16:29] LABS: Influenza A QL RT-PCR Negative (Negative); Influenza B QL RT-PCR Negative (Negative); RSV RNA, RT-PCR Negative (Negative); SARS-CoV-2 RNA PCR Negative (Negative)
[2023-07-14 16:54] LABS: Ammonia < 9 umol/L (9-30)
[2023-07-14] MEDS: ESMOLOL HCL 100 MG/10 ML VIAL 10 MG IV PUSH (16:55)
--- NOTE | 2023-07-14 18:21 | ECG_ITS ---
Measurements Intervals [place] Rate: 60 P: 45 SD: 167 QRS: 26 QRSD: 98 T: 54 QT: 429 QTc: 431 Interpretive Statements SINUS RHYTHM VOLTAGE CRITERIA FOR LVH BASELINE ARTIFACT- I, II, AVR, AVL, AVF, V1 BORDERLINE ECG COMPARED TO ECG 10/22/2021 09:41:01 NO SIGNIFICANT CHANGES Electronically Signed On 07-15-2023 6:28:49 SECONDARY ART TEACHER by Jagdish Avila D.O.
[2023-07-14 18:48] LABS: NT Pro B Type Natriuretic Pept 298 pg/mL (19.9-100); Troponin I < 0.012 ng/mL (0.000-0.034)
[2023-07-14] MEDS: hydrALAZINE HCL 20 MG/ML VIAL IV PUSH (18:50)
[2023-07-14 19:02] LABS: Appearance Urine Cloudy (Clear); Bacteria Urine 4+ /hpf; Bilirubin Urine Negative (Negative); Blood Urine Negative (Negative); Color Urine Yellow (Yellow); Glucose Urine UA Negative (Negative); Ketones Urine Negative (Negative); Leukocyte Esterase Ur 1+ LEU/UL (Negative); Nitrate Urine Positive (Negative); Non Pathogenic Casts 0-2; Protein Urine Negative (Negative); RBC Urine 0-2 /hpf (0-2); Specific Grav Ur 1.015 (1.001-1.035); Squamous Epithelial Cell Urine Moderate /hpf (Few); Urobilinogen Urine 0.2 mg/dL (<2.0); WBC Urine 21-50 /hpf; pH Urine 5.5 (5.0-9.0)
--- NOTE | 2023-07-14 19:07 | PC.NURSE ---
BP reviewed with Dr. Hernández at this time, VO Nicardipine drip to be held at this time
[2023-07-14 19:09] LABS: Add Urine Microscopic? YES
--- NOTE | 2023-07-14 20:48 | ADMIMU ---
Addendum entered by Abraham Harvey RN 07/14/23 21:09: amended arrival time 2039 Original Note: 2239 This patient, Brigid Barrios, was admitted to IMU status, and placed in Intensive Care Unit-7. Patient/family oriented to hospital policies and general routines including ID bracelet, bed and alarms, visiting hours, pain management, procedures, bathroom and other care routines, personal items, smoking policy, room service/diet, and visiting hours. Valuables list has been completed. Information on how to activate the Rapid Response Team has been discussed. Patient/Family are encouraged to report perceived risks to care and to ask questions if they do not understand what they are told or what they should do.
[2023-07-14] MEDS: ACETAMINOPHEN 325 MG TABLET 650 MG PO (20:53)
--- NOTE | 2023-07-14 21:22 | ECG_ITS ---
Measurements Intervals [place] Rate: 86 P: 62 VA: 172 QRS: 11 QRSD: 90 T: 31 QT: 381 QTc: 458 Interpretive Statements SINUS RHYTHM VENTRICULAR PREMATURE COMPLEX AND FREQUENT ATRIAL PREMATURE COMPLEXES DELAYED PRECORDIAL R/S TRANSITION NONSPECIFIC ST & T-WAVE ABNORMALITY- INF/HIGH LAT LEADS BASELINE ARTIFACT- I, II, III, AVF ABNORMAL ECG COMPARED TO ECG 07/14/2023 18:31:58 ATRIAL AND VENTRICULAR PREMATURE COMPLEXES NOW PRESENT Electronically Signed On 07-15-2023 6:34:31 CDL DRIVER by Jagdish Avila D.O.
--- NOTE | 2023-07-14 21:51 | PM.IMHP ---
H&P: HPI History of Present Illness Date/Time: 07/14/23 22:00 Chief Complaint: High blood pressure. Narrative: This is a very pleasant 68-year-old female with hypertension, hyperlipidemia, obstructive sleep apnea, gastroesophageal reflux disease, irritable bowel syndrome, hypothyroidism, depression, and anxiety who presented to the emergency department via private vehicle for evaluation of high blood pressure. The patient provides the following history. She did not feel great yesterday and had several episodes of diarrhea which is not necessarily unusual for her. Her appetite was also not great yesterday and she only had some soup. Today she was feeling better and in fact she had a routine dental cleaning. Her systolic blood pressure was over 200 when she got to the dentist's office and they took it multiple times with the same reading. She was encouraged to go to the ER however she went home where she checked her blood pressure on her home cuff which correlated. With further questioning she does endorse mild blurry vision, dizziness, and a generalized headache for several days. She denies sweats, flushing, vertigo, focal weakness, paresthesias, chest pain, palpitations, and shortness of breath. She states compliance with her home medications. She was recently started on Xifaxan for her GI symptoms but she has not had any other medication changes. She denies feeling anxious today and she has not had any recent stressors. She denies taking stimulants, illicit substances, and high doses of caffeine. Her blood pressure has been as high as 234/101 since arrival. She received 10 mg IV esmolol and 20 mg IV hydralazine with minimal improvement and her blood pressures. She was admitted to the ICU with plans to start nicardipine drip however her blood pressures have started to improve and that has not yet been initiated. She is feeling better but still has a mild headache. She has no other complaints at this time. Review of Systems Review of Systems: Twelve systems were reviewed and are negative except for as per HPI. [facility] Past Medical History Medical History Adenomatous colon polyp Anxiety Chronic allergic rhinitis Elevated LFTs US showed fatty liver 08/2022 Endometriosis Gas bloat syndrome Gastroesophageal reflux Hyperactive bowel sounds Hyperlipidemia Hypertension Hypothyroidism Iron deficiency anemia Irritable bowel syndrome with diarrhea Ovarian cyst Pre-diabetes Spinal stenosis Surgical History Surgical History H/O cervical discectomy H/O hernia repair lap paraesophageal hernia repair with Rachael H/O: hysterectomy History of appendectomy History of esophagogastroduodenoscopy (EGD) History of incisional hernia repair Date unknown - incision from previous emergent History of Rachael fundoplication 10/31/21 History of tonsillectomy Hx of section Hx of neck surgery S/p bilateral myringotomy with tube placement Family History Family History Father Hypertension Heart disease Hyperlipidemia Depression Malignant neoplasm of prostate Cerebrovascular accident Sibling Hypertension Hyperlipidemia Depression Cerebrovascular accident Sibling Depression Bipolar disorder Hypertension Hyperlipidemia Other Kidney stone Seizure Skin cancer Social History Social History Social History: Surrogate medical decision maker: Gulshan Barrios, spouse. Code status: Full code. Smoking status: Never smoker Second hand tobacco smoke exposure: No Alcohol intake: current Drinks per week: 10 Alcohol use details: wine Substance use: never Substance use type: does not use Do You Feel Safe in your Home?: Yes Lack of Transportation: No Lack of Food: Never True C
[2023-07-15] VITALS (9 sets, daily range): BP systolic 133–193; BP diastolic 56–87; PULSE 63–86; RESP 14–19; TEMP 36.7; O2SAT 93–99
[2023-07-15] MEDS: ACETAMINOPHEN 325 MG TABLET 650 MG PO ×2 (01:33→09:26)
[2023-07-15 02:52] LABS: MRSA (PCR) NOT DETECTED (NOT DETECTE)
--- NOTE | 2023-07-15 03:13 | PC.NURSE ---
2039 This patient, Brigid Barrios, was admitted to IMU status, and placed in Intensive Care Unit-7. Patient/family oriented to hospital policies and general routines including ID bracelet, bed and alarms, visiting hours, pain management, procedures, bathroom and other care routines, personal items, smoking policy, room service/diet, and visiting hours. Valuables list has been completed. Information on how to activate the Rapid Response Team has been discussed. Patient/Family are encouraged to report perceived risks to care and to ask questions if they do not understand what they are told or what they should do.
[2023-07-15 04:41] LABS: Hematocrit 39.4 % (37.0-47.0); Hemoglobin 13.2 g/dL (12.0-15.0); Mean Corpuscular HGB Conc 33.5 g/dl (32-36); Mean Corpuscular Hemoglobin 33.2 pg (26-34); Mean Corpuscular Volume 99.2 fl (80-100); Platelet Count Result 173 k/mm3 (150-375); Red Blood Count 3.97 M/mm3 (4.2-5.4); Red Cell Distribution Width 14.2 % (11.5-14.5); White Blood Count 5.2 K/mm3 (4.5-10.0)
[2023-07-15 05:08] LABS: Alanine Aminotransferase 89 U/L (6-35); Alkaline Phosphatase 71 U/L (38-126); Anion Gap 2 mmol/L (8-16); Aspartate Amino Transferase 55 U/L (14-36); Bilirubin,Total 0.7 mg/dL (0.2-1.3); Blood Urea Nitrogen 15 mg/dL (7-17); Calcium 8.3 mg/dL (8.4-10.2); Carbon Dioxide 28 mmol/L (22-30); Chloride 107 mmol/L (98-107); Estimated CRCL calculation 71 ml/min; Estimated Glomerular Filt Rate > 60; Glucose 110 mg/dL (65-110); Magnesium 2.3 mg/dL (1.6-2.3); Potassium 4.1 mmol/L (3.4-5.0); Sodium 137 mmol/L (137-145)
[2023-07-15] MEDS: LEVOTHYROXINE SODIUM 125 MCG TABLET PO (08:07)
[2023-07-15] MEDS: DICYCLOMINE HCL 10 MG CAPSULE 20 MG PO ×2 (08:08→16:46)
[2023-07-15] MEDS: POTASSIUM CHLORIDE 10 MEQ ER TABLET PO (08:08)
[2023-07-15] MEDS: FUROSEMIDE 40 MG TABLET PO (08:08)
[2023-07-15] MEDS: ESCITALOPRAM OXALATE 10 MG TABLET 20 MG PO (08:08)
[2023-07-15] MEDS: ROSUVASTATIN 10 MG TABLET 40 MG PO (08:09)
[2023-07-15] MEDS: LOSARTAN POTASSIUM 25 MG TABLET PO (08:09)
[2023-07-15] MEDS: MONTELUKAST SODIUM 10 MG TABLET PO (08:09)
[2023-07-15] MEDS: PANTOPRAZOLE 40 MG TABLET PO ×2 (08:09→16:46)
[2023-07-15] MEDS: hydrALAZINE HCL 20 MG/ML VIAL 10 MG IV PUSH (08:30)
--- NOTE | 2023-07-15 08:32 | PC.NURSE ---
Pt unable to take PO medications on an empty stomach. Pt is NPO for testing. Notified US of this situation and that pt needs her BP treated (193/87). We will be up as soon as we can. notified. New order to give 10mg IVP Hydralazine now until pt is able to take PO medications.
--- NOTE | 2023-07-15 08:46 | WPDCNINT ---
Assessment and Plan Assessment and plan (1) Hypertensive urgency: Code(s): I16.0 - Hypertensive urgency Status: Acute Assessment and Plan: 07/14: Patient presented with systolic blood pressures in the 230s from the dental office as she had gone to get her teeth cleaned. In the ER patient was given esmolol 10 mg IV x1 and hydralazine 20 mg IV x1 and was transferred to the ICU to started in nicardipine infusion, upon arrival to the ICU patient's blood pressures were in the 150-180s, so nicardipine was never started -patient started on home antihypertensives, Lasix, losartan -will add a small dose of amlodipine -patient again MRI of the brain and brainstem -echocardiogram has been ordered -renal duplex ultrasound has been ordered (2) Transaminitis: Code(s): R74.01 - Elevation of levels of liver transaminase levels Status: Acute Assessment and Plan: Likely severe fatty liver, this is a chronic issue (3) Irritable bowel syndrome: Code(s): K58.9 - Irritable bowel syndrome without diarrhea Status: Acute Assessment and Plan: History of head syndrome, continue dicyclomine, rifaximin (4) Hyperlipidemia: Qualifiers: Hyperlipidemia type: unspecified Qualified Code(s): E78.5 - Hyperlipidemia, unspecified Code(s): E78.5 - Hyperlipidemia, unspecified Status: Acute Assessment and Plan: Continue rosuvastatin (5) Abnormal urinalysis: Code(s): R82.90 - Unspecified abnormal findings in urine Status: Acute Assessment and Plan: Normal white blood cell count, afebrile, no symptoms -will hold off antibiotics -urine cultures have been obtained and pending Plan DVT prophylaxis: SCDs Stress ulcer prophylaxis: Protonix (home medication0 Nutrition: NPO for now for ultrasound will start heart healthy diet after that Code Status: Full code Critical Care Time Spent: 46 minutes Due to a high probability of clinically significant, life threatening deterioration, the patient required my highest level of preparedness to intervene emergently and I personally spent this critical care time directly and personally managing the patient. This critical care time included obtaining a history; examining the patient; pulse oximetry; ordering and review of studies; arranging urgent treatment with development of a management plan; evaluation of patient's response to treatment; frequent reassessment; and discussions with other providers. It was exclusive of separately billable procedures and treating other patients and teaching time. Please see Assessment and Plan section and the rest of the note for further information on patient assessment and treatment This dictation may have been done utilizing a voice recognition system. Attempts have been made to correct errors. However, there may be uncorrected grammatical, spelling, and recognitions errors present. Crisis Nurse Consult Note Consult date: 07/15/23 Reason for consult: Hypertensive urgency, blurring of vision, dizziness HPI: Brigid Barrios is a 68 year old female with past medical history of essential hypertension, hyperlipidemia, hypothyroidism, irritable bowel syndrome with diarrhea, anxiety, endometriosis, presented the ED with elevated blood pressures, 234/101. She did complain of blurring of vision, dizziness and generalized headaches for several days. Denies any chest pains, shortness of breath, diaphoresis, palpitations. She states she is compliant with her medications at home. Patient was given esmolol 10 mg IV x1 and hydralazine 20 mg IV x1 in the ER and was transferred to the ICU with a plan to start her on nicardipine infusion. Upon arrival to the ICU her blood pressures were much improved, patient did not require nicardipine infusion Patient seen and examined this morning in the ICU, is awake, alert, oriented x3, nonfocal, answers to questions appropriately and follows simple commands in all extremit
[2023-07-15] MEDS: amLODIPine BESYLATE 5 MG TABLET PO (09:33)
[2023-07-15] MEDS: PERFLUTREN LIPID MICROSPHERES 1.5 ML VIAL DILUTED TO 10 ML TOTAL VOLUME IV PUSH (10:30)
--- NOTE | 2023-07-15 11:42 | IVDEFINITY ---
Prior to administration of IV Definity the patient was educated on the risks and benefits of the imaging enhancing agent including potential adverse side effects. The patient verbalized understanding. Allergies were verified. No exclusion criteria were identified and at least one of the following inclusion criteria were met: 1) physician request, 2) patient technically difficult to image (per the [employer] Echocardi[employer] guidelines of two or more segments not discernable within the apical view), or 3) questionable left ventricular function. ?
[2023-07-15] MEDS: rifAXIMin 550 MG TABLET PO ×3 (11:58→20:53)
--- NOTE | 2023-07-15 14:18 | WPDNEURCNPN ---
Assessment and Plan Assessment and plan (1) Hypertensive emergency: Code(s): I16.1 - Hypertensive emergency Status: Acute (2) Transaminitis: Code(s): R74.01 - Elevation of levels of liver transaminase levels Status: Acute Plan Ms. Barrios is a 68 year old female presenting with headache, blurry vision, and dizziness for the past few days in the setting of elevated BP (as high as 230s systolic). Consistent with hypertensive emergency. Symptoms have been improving since BP has come down. MRI brain for any acute changes. No further work-up needed at this time. BP management per primary team. Consult date: 07/15/23 Reason for consult: Dizziness HPI: Brigid Barrios is a 68 year old female with a history of HTN, hLD, ALVINA, GERD, IBS, hypothyroidism, depression and anxiety presenting with hypertension. Patient was at her dentist's office for routine cleaning and had her blood pressure checked. Her SBO was over 200. She was encouraged to go the the ER but went home, where rechecked her BP which was also in the 200s. Patient then went to [facility]. She has also been having mild blurry vision, dizziness, and headache for the past few days. On presentation to [facility] ED her blood pressure was 234/101 on presentation. She received several doses of PRN hypertensive agents which brought her blood pressure down. She was admitted to the ICU because initially there were concerns that she would need a nicardipine drip, but she has not required it yet. Since admission, her dizziness has improved but she still has a slight headache and neck pain. She still feels dizzy (which she actually describes as lightheadedness), roaring in ears. She denies any room spinning sensation. MRI brain done this morning that was negative for any acute changes. BP was elevated again this morning at 190s systolic, but at the time of my elevation the last BP read was 120s systolic. Review of Systems Review of Systems: All systems reviewed & are unremarkable except as noted in HPI and below PMFSH Past Medical History Medical History Adenomatous colon polyp Anxiety Chronic allergic rhinitis Elevated LFTs US showed fatty liver 08/2022 Endometriosis Gas bloat syndrome Gastroesophageal reflux Hyperactive bowel sounds Hyperlipidemia Hypertension Hypothyroidism Iron deficiency anemia Irritable bowel syndrome with diarrhea Ovarian cyst Pre-diabetes Spinal stenosis Surgical History Surgical History H/O cervical discectomy H/O hernia repair lap paraesophageal hernia repair with Rachael H/O: hysterectomy History of appendectomy History of esophagogastroduodenoscopy (EGD) History of incisional hernia repair Date unknown - incision from previous emergent History of Rachael fundoplication 10/31/21 History of tonsillectomy Hx of section Hx of neck surgery S/p bilateral myringotomy with tube placement Family History Family History Father Hypertension Heart disease Hyperlipidemia Depression Malignant neoplasm of prostate Cerebrovascular accident Alzheimer disease History of quadruple bypass Sibling Hypertension Hyperlipidemia Depression Cerebrovascular accident Sibling Depression Bipolar disorder Hypertension Hyperlipidemia Other Kidney stone Seizure Skin cancer Social History Social History Social History: Surrogate medical decision maker: Gulshan Barrios, spouse. Code status: Full code. Smoking status: Never smoker Second hand tobacco smoke exposure: No Alcohol intake: current Drinks per week: 10 Alcohol use details: wine Substance use: never Substance use type: does not use Do You Feel Safe in your Home?: Yes Lack of Transportation: No Lack of Food: Never Tr
--- NOTE | 2023-07-15 17:03 | PC.NURSE ---
This patient, Brigid Barrios, was transferred to [[facility] ] on 07/15/23 at 1703. Personal belongings sent with patient. Report given to [PETROS Mejias @ [phone] ]. Appropriate documentation sent with patient. Family updated with transfer
--- NOTE | 2023-07-15 17:10 | PC.NURSE ---
This patient, Brigid Barrios, was received from ICU-7 on 07/15/23 at 1710. Patient/family oriented to unit policies and routines
--- NOTE | 2023-07-15 23:50 | ECHO_ITS ---
Patient Info Name: Brigid Barrios Age: 68 years : 1955 Gender: Female Ht: 64 in Wt: 203 lbs BSA: 2.08 m2 HR: 67 bpm BP: 152 / 72 mmHg Technical Quality: Fair Exam Date: 07/15/2023 9:43 AM Exam Location: Echo Lab Exam Room: ICU7 Patient Status: Inpatient Admit Date: 07/14/2023 Staff Ordering Physician: Madeline Pandya PA-C Legal Researcher: Deana Farris RDCS Attending Provider: Bere Canela MD Referring Physician: Mumtaz MEZA; Exam Type: CA echo dop color flow w con Study Info Indications - HYPERTENSIVE URGENCY MURMUR Complete two-dimensional, color flow and Doppler transthoracic echocardiogram is performed with contrast to opacify the left ventricle and to improve the deliniation of the left ventricle endocardial borders. Contrast/Agitated Saline Contrast/Ag. Saline: Definity Amount: 2.00 ml Administered By: Deana Farris [facility] Existing IV Access: Yes IV Access Condition: patent with no signs of infiltration Summary 1. Definity contrast administered improved wall motion interpretation. 2. Left ventricular chamber dimension is normal. 3. Left ventricular systolic function is hyperdynamic, estimated at >70%. 4. There is moderate concentric increased left ventricular wall thickness. 5. The left ventricular diastolic function is grade I diastolic dysfunction. 6. E/e' 19 is elevated. 7. Left atrial chamber dimension is moderately enlarged. 8. There is moderate aortic valve sclerosis. 9. The mitral valve has severe posterior calcified annulus. 10. There is mild tricuspid valve regurgitation. 11. No pulmonary hypertension, estimated pulmonary arterial systolic pressure is 31 mmHg. Left Ventricle E/e' 19 is elevated. Definity contrast administered improved wall motion interpretation. Left ventricular chamber dimension is normal. Left ventricular systolic function is hyperdynamic, estimated at >70%. There is moderate concentric increased left ventricular wall thickness. The left ventricular diastolic function is grade I diastolic dysfunction. Right Ventricle Right ventricular chamber dimension is normal. Right ventricular systolic function is normal. Left Atria Left atrial chamber dimension is moderately enlarged. Right Atria Right atrial chamber dimension is normal. Aortic Valve The aortic valve is trileaflet. There is moderate aortic valve sclerosis. There is no aortic valve stenosis. There is no aortic valve regurgitation. Pulmonic Valve There is no pulmonic regurgitation. Mitral Valve The mitral valve has severe posterior calcified annulus. There is no mitral valve stenosis. There is no mitral valve regurgitation. Tricuspid Valve There is mild tricuspid valve regurgitation. No pulmonary hypertension, estimated pulmonary arterial systolic pressure is 31 mmHg. Pericardium/Pleural There is no pericardial effusion. Inferior Vena Cava Normal inferior vena cava with >50% collapse upon inspiration consistent with normal right atrial pressure, 5 mmHg. Aorta The aortic root size at the sinus of Valsalva is normal. Left Ventricular Outflow Tract Name Value Normal LVOT 2D LVOT Diameter 1.96 cm LVOT Doppler LV
[2023-07-16 06:00] VITALS: BP 148/98; PULSE 80; RESP 14; TEMP 36.5; O2SAT 94
[2023-07-16] MEDS: LEVOTHYROXINE SODIUM 125 MCG TABLET PO (06:12)
[2023-07-16 06:35] LABS: Basophils Percent Auto 0.4 % (0.2-1.2); Eosinophils Absolute Auto 0.1 K/mm3 (0-0.3); Eosinophils Percent Auto 1.7 % (0-4.4); Hematocrit 43.3 % (37.0-47.0); Hemoglobin 14.4 g/dL (12.0-15.0); Immature Granulocyte Absolute 0.01 K/mm3 (0.00-0.031); Immature Granulocyte Percent A 0.2 % (0-0.5); Lymphocytes Absolute Auto 1.98 K/mm3 (0.9-3.2); Lymphocytes Percent Auto 38.2 % (18.3-44.2); Mean Corpuscular HGB Conc 33.3 g/dl (32-36); Mean Corpuscular Hemoglobin 33.1 pg (26-34); Mean Corpuscular Volume 99.5 fl (80-100); Mean Platelet Volume 9.9 fl (7.4-10.4); Monocytes Absolute Auto 0.4 K/mm3 (0.1-0.6); Monocytes Percent Auto 7.1 % (2.6-8.5); Neutrophils Absolute Auto 2.7 K/mm3 (1.3-6.7); Neutrophils Percent Auto 52.4 % (45.5-73.1); Platelet Count Result 168 k/mm3 (150-375); Red Blood Count 4.35 M/mm3 (4.2-5.4); Red Cell Distribution Width 14.3 % (11.5-14.5); White Blood Count 5.2 K/mm3 (4.5-10.0)
[2023-07-16 07:01] LABS: Alanine Aminotransferase 74 U/L (6-35); Albumin Level 3.4 g/dL (3.5-5.1); Alkaline Phosphatase 79 U/L (38-126); Anion Gap 3 mmol/L (8-16); Aspartate Amino Transferase 42 U/L (14-36); Bilirubin,Total 0.7 mg/dL (0.2-1.3); Blood Urea Nitrogen 16 mg/dL (7-17); Calcium 8.6 mg/dL (8.4-10.2); Carbon Dioxide 28 mmol/L (22-30); Chloride 105 mmol/L (98-107); Estimated CRCL calculation 63 ml/min; Estimated Glomerular Filt Rate > 60; Glucose 113 mg/dL (65-110); Magnesium 2.3 mg/dL (1.6-2.3); Potassium 3.6 mmol/L (3.4-5.0); Sodium 136 mmol/L (137-145)
[2023-07-16] MEDS: MONTELUKAST SODIUM 10 MG TABLET PO (09:06)
[2023-07-16] MEDS: POTASSIUM CHLORIDE 10 MEQ ER TABLET PO (09:06)
[2023-07-16] MEDS: LOSARTAN POTASSIUM 25 MG TABLET PO (09:06)
[2023-07-16] MEDS: ESCITALOPRAM OXALATE 10 MG TABLET 20 MG PO (09:06)
[2023-07-16] MEDS: amLODIPine BESYLATE 5 MG TABLET PO (09:06)
[2023-07-16] MEDS: ROSUVASTATIN 10 MG TABLET 40 MG PO (09:07)
[2023-07-16] MEDS: DICYCLOMINE HCL 10 MG CAPSULE 20 MG PO (09:07)
[2023-07-16] MEDS: rifAXIMin 550 MG TABLET PO ×2 (09:07→14:37)
[2023-07-16] MEDS: ACETAMINOPHEN 325 MG TABLET 650 MG PO (09:07)
[2023-07-16] MEDS: FUROSEMIDE 40 MG TABLET PO (09:07)
[2023-07-16] MEDS: PANTOPRAZOLE 40 MG TABLET PO (09:07)
--- NOTE | 2023-07-16 14:01 | PM.DS ---
DS: Admitting Diagnosis Discharge Date 07/16 Admitting Diagnosis hypertensive emergency DS: Discharge Diagnosis Discharge Diagnosis (1) Hypertensive emergency: Code(s): I16.1 - Hypertensive emergency Status: Acute (2) Transaminitis: Code(s): R74.01 - Elevation of levels of liver transaminase levels Status: Acute DS: Summary Hospital Course Hospital Course: 68-year-old female with history of hypertension, hyperlipidemia, obstructive sleep apnea, GERD, irritable bowel syndrome, hypothyroidism, depression, anxiety presented with dizziness headache and blurry vision. The patient has been compliant with her antihypertensives. She presented to her dentist office and her systolic blood pressure was over 200. She was encouraged to route to the ER however she went home and checking it there it was elevated to 234/101. She received 10 mg IV esmolol and 20 mg IV hydralazine however there was minimal improvement in her blood pressures. She was admitted to ICU with plans to start nicardipine drip however her blood pressures did normalize and that was not administered. On 07/16/2023 the patient is stable with blood pressure ranging systolic 130s to 140s and diastolic 80s and 90s. She has been restarted on her home dose Lasix 40 mg daily and losartan 25 mg daily with the addition of amlodipine 5 mg daily. Her blurry vision dizziness and headache have resolved. Neurology consulted and no further workup or management suggested aside from management of blood pre MRI brain brainstem without and with contrast unremarkable for acute pathology. renal artery ultrasound unremarkable for stenosis. Surface echocardiogram summary as follow: Summary ? 1. Definity contrast administered improved wall motion interpretation. ? 2. Left ventricular chamber dimension is normal. ? 3. Left ventricular systolic function is hyperdynamic, estimated at >70%. ? 4. There is moderate concentric increased left ventricular wall thickness. ? 5. The left ventricular diastolic function is grade I diastolic dysfunction. ? 6. E/e' 19 is elevated. ? 7. Left atrial chamber dimension is moderately enlarged. ? 8. There is moderate aortic valve sclerosis. ? 9. The mitral valve has severe posterior calcified annulus. ? 10. There is mild tricuspid valve regurgitation. ? 11. No pulmonary hypertension, estimated pulmonary arterial systolic pressure is 31 mmHg. Patient does not have a indian nanny. She will follow with Dr. Avila on these findings and for further management of blood pressure. Of note patient presented with transaminitis which is resolving along with resolution of blood pressure. Probably related to hypertensive emergency. Repeat LFTs ordered in 1 week to be cc to her primary care doctor. Further workup as outpatient. Patient amenable to this plan and she is encouraged to continue compliance with antihypertensives. She will be discharged home in stable condition. The patient was focal during her admission. Time Spent with Patient Time attestation: Total time spent providing and/or coordinating discharge services: Exam Const: General: cooperative and no acute distress Resp: Effort & Inspection: normal respiratory effort Auscultation: clear to auscultation bilaterally Cardio: Rate: regular rate Rhythm: regular rhythm Heart sounds: S1 normal heart sound present and S2 normal heart sound present GI: GI Palp: No abdominal tenderness Auscultation: normal bowel sounds DS: Data Data Completed and Pending Labs on day of discharge: Labs from last 24 hours 07/16/23 06:22 WBC 5.2 RBC 4.35 Hgb 14.4 Hct 43.3 MCV 99.5 MCH 33.1 MCHC 33.3 RDW 14.3 Plt Count 168 MPV 9.9 Immature Gran % (Auto) 0.2 Neut % (Auto) 52.4 Lymph % (Auto) 38.2 Luna % (Auto) 7.1 Eos % (Auto) 1.7 Baso % (Auto) 0.4 Lymph # (Auto) 1.98 Luna # (Auto) 0.4 Eos # (Auto) 0.1 Baso # (Auto) 0.0 Abs Immat Gran (auto) 0.01 Absolute Neuts (auto) 2.
== END 2023-07-16 14:45 | disposition home or self-care (01) | DRG 305 ==
LOC: ANHED 15:39 → ANHICU 20:20 → ANH3MEDSUR 07-15 17:10
PROVIDERS: Internal Medicine; Physician Assistant; Admitting Provider Family Medicine; Emergency Provider Student in an Organized Health Care Education/Training Program; Visit Provider General Practice
DX: I16.1 Hypertensive emergency (principal); K58.0 Irritable bowel syndrome with diarrhea; Z20.822 Contact with and (suspected) exposure to COVID-19; G47.33 Obstructive sleep apnea (adult) (pediatric); E78.5 Hyperlipidemia, unspecified; K21.9 Gastro-esophageal reflux disease without esophagitis; E03.9 Hypothyroidism, unspecified; D50.9 Iron deficiency anemia, unspecified; F32.A Depression, unspecified; F41.9 Anxiety disorder, unspecified; R82.90 Unspecified abnormal findings in urine; Z90.49 Acquired absence of other specified parts of digestive tract; Z90.710 Acquired absence of both cervix and uterus
CPT/HCPCS: 36415; 70450; 70553; 71045; 80053; 81001; 82140; 83690; 83735; 83880; 84100; 84443; 84484; 85025; 85027; 87086; 87186; 87637; 87641; 93005; 93976; 96374; 96375; 99285; A9270; A9577; C8929; J0360; J0696; Q9957

== ENCOUNTER 2023-07-21 10:25 | Outpatient (CLI) | payer MEDICARE, OTHER, SELFPAY ==
[2023-07-21 11:25] LABS: Alanine Aminotransferase 93 U/L (6-35); Albumin Level 4.2 g/dL (3.5-5.1); Alkaline Phosphatase 88 U/L (38-126); Anion Gap 5 mmol/L (8-16); Aspartate Amino Transferase 59 U/L (14-36); Bilirubin,Total 0.6 mg/dL (0.2-1.3); Blood Urea Nitrogen 16 mg/dL (7-17); Calcium 9.3 mg/dL (8.4-10.2); Carbon Dioxide 32 mmol/L (22-30); Chloride 103 mmol/L (98-107); Estimated Glomerular Filt Rate > 60; Glucose 115 mg/dL (65-110); Potassium 4.2 mmol/L (3.4-5.0); Sodium 140 mmol/L (137-145)
[2023-07-27 12:19] LABS: PRA 10.01 ng/mL/h (0.25-5.82)
== END 2023-07-21 10:26 | disposition home or self-care (01) ==
PROVIDERS: PCP Family Medicine; Visit Provider Family Medicine
DX: I16.1 Hypertensive emergency (principal); R74.8 Abnormal levels of other serum enzymes
CPT/HCPCS: 36415; 80048; 80076; 82088; 82384; 84244

== ENCOUNTER 2023-08-04 09:01 | Outpatient (CLI) | payer MEDICARE, OTHER, SELFPAY ==
[2023-08-04 09:50] LABS: Alanine Aminotransferase 66 U/L (6-35); Albumin Level 3.6 g/dL (3.5-5.1); Alkaline Phosphatase 88 U/L (38-126); Anion Gap 5 mmol/L (8-16); Aspartate Amino Transferase 52 U/L (14-36); Bilirubin,Total 0.7 mg/dL (0.2-1.3); Blood Urea Nitrogen 14 mg/dL (7-17); Carbon Dioxide 26 mmol/L (22-30); Chloride 106 mmol/L (98-107); Cholesterol 204 mg/dL (0-200); Estimated Glomerular Filt Rate > 60; Glucose 119 mg/dL (65-110); HDL Direct 75 mg/dL; Magnesium 2.2 mg/dL (1.6-2.3); Potassium 4.1 mmol/L (3.4-5.0); Sodium 137 mmol/L (137-145); Triglycerides 107 mg/dL (<150)
[2023-08-04 10:01] LABS: LDL Cholesterol Direct 113 mg/dL
== END 2023-08-04 09:02 | disposition home or self-care (01) ==
LOC: ANHLAB 09:04
PROVIDERS: PCP Family Medicine; Visit Provider Internal Medicine Cardiovascular Disease
DX: E78.5 Hyperlipidemia, unspecified (principal)
CPT/HCPCS: 36415; 80053; 80061; 83735

== ENCOUNTER 2023-08-05 00:33 | Day surgery (SDC) | payer MEDICARE, OTHER, SELFPAY ==
[2023-07-14 09:30] VITALS: BMI 34.0
--- NOTE | 2023-08-04 16:45 | PM.HPGS ---
History of Present Illness History of Present Illness Consent: Risks, benefits, and alternatives have been discussed and questions answered. Patient agrees to proceed with procedure. Chief complaint: GERD, Dysphagia Narrative: Brigid Barrios is a 68 year old female Was recently seen in our office with worsening acid reflux, dysphagia along with bilateral lower abdominal cramping and postprandial diarrhea.? She has a history of paraesophageal hernia repair in October of [address] Santana.? She states the symptoms she is experiencing now is similar prior to the hernia repair.? She is having GERD symptoms with eating and drinking without times nocturnal regurgitation.? She also states that she is feels very bloated and almost immediately after eating she will have to go to the bathroom and have diarrhea with lower abdominal cramping. Review of Systems Review of Systems: All systems reviewed & are unremarkable except as noted in HPI and below PMFSH Past Medical History Medical History Adenomatous colon polyp Anxiety Chronic allergic rhinitis Elevated LFTs US showed fatty liver 08/2022 Endometriosis Gas bloat syndrome Gastroesophageal reflux Hyperactive bowel sounds Hyperlipidemia Hypertension Hypothyroidism Iron deficiency anemia Irritable bowel syndrome with diarrhea Ovarian cyst Pre-diabetes Spinal stenosis Surgical History Surgical History H/O cervical discectomy H/O hernia repair lap paraesophageal hernia repair with Rachael H/O: hysterectomy History of appendectomy History of esophagogastroduodenoscopy (EGD) History of incisional hernia repair Date unknown - incision from previous emergent History of Rachael fundoplication 10/31/21 History of tonsillectomy Hx of section Hx of neck surgery S/p bilateral myringotomy with tube placement Family History Family History Father Hypertension Heart disease Hyperlipidemia Depression Malignant neoplasm of prostate Cerebrovascular accident Alzheimer disease History of quadruple bypass Sibling Hypertension Hyperlipidemia Depression Cerebrovascular accident Sibling Depression Bipolar disorder Hypertension Hyperlipidemia Other Kidney stone Seizure Skin cancer Social History Social History Social History: Surrogate medical decision maker: Gulshan Barrios, spouse. Code status: Full code. Smoking status: Never smoker Second hand tobacco smoke exposure: No Alcohol intake: current Drinks per week: 10 Alcohol use details: wine Substance use: never Substance use type: does not use Do You Feel Safe in your Home?: Yes Lack of Transportation: No Lack of Food: Never True Current Housing: I Have Housing Concerned About Future Housing: No Difficulty Paying Gas/Electric Bills: No Difficulty Paying for Meds: No Currently Unemployed: No Education: Bachelor's Degree Difficulty w/ Childcare or Family Care: No Living arrangements: with family Occupation/Education: retired Spiritual care concerns: No Meds Home Medications and Allergies Home Medications Medication Instructions Recorded Confirmed Type albuterol sulfate 90 mcg/actuation See Rx Instructions .Route 03/01/23 08/05/23 Rx aerosol inhaler .COMPLEX #25.5 grams dicyclomine 20 mg tablet 20 mg PO BID #60 tabs 03/01/23 08/05/23 Rx ergocalciferol (vitamin D2) 1,250 1,250 mcg PO WEEKLY #12 caps 03/01/23 08/05/23 Rx mcg (50,000 unit) capsule (Vitamin D2) rosuvastatin 40 mg tablet 40 mg PO DAILY #90 tabs 03/01/23 08/05/23 Rx pantoprazole 40 mg tablet,delayed 40 mg PO BID #60 tabs 06/30/23 08/05/23 Rx release rifaximin 550 mg tablet (Xifaxan) 550 mg PO TID 14 days #42 tabs 06/30/23 08/05/23 Rx escitalopram oxalat
[2023-08-05 09:15] VITALS: BP 131/87; PULSE 94; RESP 18; TEMP 36.6; O2SAT 98
[2023-08-05] MEDS: LACTATED RINGERS 1,000 ML 150 ML IV CONT (09:20)
--- NOTE | 2023-08-05 10:05 | WPDANESEPPF ---
Anes - Initial Pre Proc Eval Procedure: Operation Date: 08/05/23 10:30 Proposed Procedures p Esophagogastroduodenoscopy - Fernie Kaufman MD Date/Time: 08/05/23 10:05 Surgeon: Fernie Kaufman MD Pre Op Diagnosis: GERD, Dysphagia Patient Data Age: 68 Gender: F Height: 1.63 m Weight: 90 kg Last Vital Signs Temp 97.8 F 08/05/23 09:15 Pulse 94 08/05/23 09:15 Resp 18 08/05/23 09:15 BP 131/87 08/05/23 09:15 Pulse Ox 98 08/05/23 09:15 O2 Del Method Room Air 08/05/23 09:15 Allergies Allergy/AdvReac Type Severity Reaction Status Date / Time Iodine and Iodide Containing Allergy Severe Hives Verified 08/05/23 09:13 Produc Home Medications Medication Instructions Recorded Confirmed Type albuterol sulfate 90 mcg/actuation See Rx Instructions .Route 03/01/23 08/05/23 Rx aerosol inhaler .COMPLEX #25.5 grams dicyclomine 20 mg tablet 20 mg PO BID #60 tabs 03/01/23 08/05/23 Rx ergocalciferol (vitamin D2) 1,250 1,250 mcg PO WEEKLY #12 caps 03/01/23 08/05/23 Rx mcg (50,000 unit) capsule (Vitamin D2) rosuvastatin 40 mg tablet 40 mg PO DAILY #90 tabs 03/01/23 08/05/23 Rx pantoprazole 40 mg tablet,delayed 40 mg PO BID #60 tabs 06/30/23 08/05/23 Rx release rifaximin 550 mg tablet (Xifaxan) 550 mg PO TID 14 days #42 tabs 06/30/23 08/05/23 Rx escitalopram oxalate 20 mg tablet 20 mg PO DAILY 07/14/23 08/05/23 History levothyroxine 125 mcg tablet 125 mcg PO DAILY 07/14/23 08/05/23 History losartan 25 mg tablet 25 mg PO DAILY 07/14/23 08/05/23 History montelukast 10 mg tablet 10 mg PO DAILY 07/14/23 08/05/23 History alprazolam 0.5 mg tablet 0.5 mg PO DAILY PRN Anxiety #30 07/19/23 08/05/23 Rx tabs amlodipine 5 mg tablet (Norvasc) 5 mg PO QAM 08/05/23 08/05/23 History Patient hx anesthesia problems: none Family hx anesthesia problems: none Results Review: All pre-operative results and documents have been reviewed as part of the pre-operative evaluation. [facility] Past Medical History Medical History Adenomatous colon polyp Anxiety Chronic allergic rhinitis Elevated LFTs US showed fatty liver 08/2022 Endometriosis Gas bloat syndrome Gastroesophageal reflux Hyperactive bowel sounds Hyperlipidemia Hypertension Hypothyroidism Iron deficiency anemia Irritable bowel syndrome with diarrhea Ovarian cyst Pre-diabetes Spinal stenosis Surgical History Surgical History H/O cervical discectomy H/O hernia repair lap paraesophageal hernia repair with Rachael H/O: hysterectomy History of appendectomy History of esophagogastroduodenoscopy (EGD) History of incisional hernia repair Date unknown - incision from previous emergent History of Rachael fundoplication 10/31/21 History of tonsillectomy Hx of section Hx of neck surgery S/p bilateral myringotomy with tube placement Family History Family History Father Hypertension Heart disease Hyperlipidemia Depression Malignant neoplasm of prostate Cerebrovascular accident Alzheimer disease History of quadruple bypass Sibling Hypertension Hyperlipidemia Depression Cerebrovascular accident Sibling Depression Bipolar disorder Hypertension Hyperlipidemia Other Kidney stone Seizure Skin cancer Social History Social History Social History: Surrogate medical decision maker: Gulshan Barrios, spouse. Code status: Full code. Smoking status: Never smoker Second hand tobacco smoke exposure: No Alcohol intake: current Drinks per week: 10 Alcohol use details: wine Substance use: never Substance use type: does not use Do You Feel Safe in your Home?: Yes Lack of Transportation: No Lack of Food: Never True Current Housing: I Have Housing Concerned About Future Ho
[2023-08-05 10:45] VITALS: BP 114/73; PULSE 74; RESP 17; O2SAT 97
[2023-08-05 10:55] VITALS: BP 132/80; PULSE 79; RESP 18; O2SAT 98
[2023-08-05 11:05] VITALS: BP 141/82; PULSE 81; RESP 21; O2SAT 99
== END 2023-08-05 11:12 | disposition home or self-care (01) ==
PROVIDERS: PCP Family Medicine; Visit Provider Internal Medicine Gastroenterology
PROC: 0DJ08ZZ Inspection of Upper Intestinal Tract, Via Natural or Artificial Opening Endoscopic (ICD-10-PCS; CPT 43235; principal; 2023-08-05 10:30)
DX: K21.00 Gastro-esophageal reflux disease with esophagitis, without bleeding (principal); I10 Essential (primary) hypertension; E78.5 Hyperlipidemia, unspecified; E03.9 Hypothyroidism, unspecified; F41.9 Anxiety disorder, unspecified; K21.9 Gastro-esophageal reflux disease without esophagitis; R73.03 Prediabetes; D50.9 Iron deficiency anemia, unspecified; K58.0 Irritable bowel syndrome with diarrhea; N80.9 Endometriosis, unspecified; J30.89 Other allergic rhinitis; E66.9 Obesity, unspecified; Z68.34 Body mass index [BMI] 34.0-34.9, adult; Z79.51 Long term (current) use of inhaled steroids; Z98.890 Other specified postprocedural states; Z98.1 Arthrodesis status; Z86.010 Personal history of colon polyps; Z82.49 Family history of ischemic heart disease and other diseases of the circulatory system; Z80.42 Family history of malignant neoplasm of prostate; Z84.0 Family history of diseases of the skin and subcutaneous tissue
CPT/HCPCS: 43239; 88305; J2704; J7120

== ENCOUNTER 2023-08-24 12:04 | Emergency (ER) | payer MEDICARE, OTHER, SELFPAY ==
[2023-08-24 12:25] VITALS: BP 162/84; PULSE 90; RESP 20; TEMP 36.6; O2SAT 98
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
== END 2023-08-24 12:55 | disposition home or self-care (01) ==
PROVIDERS: Emergency Provider Registered Nurse; PCP Family Medicine
DX: S61.211D Laceration without foreign body of left index finger without damage to nail, subsequent encounter (principal); W26.0XXD Contact with knife, subsequent encounter; K21.9 Gastro-esophageal reflux disease without esophagitis; E78.5 Hyperlipidemia, unspecified; E03.9 Hypothyroidism, unspecified; D50.9 Iron deficiency anemia, unspecified; R73.03 Prediabetes; M48.00 Spinal stenosis, site unspecified; F41.9 Anxiety disorder, unspecified
CPT/HCPCS: 99211; G0463

== ENCOUNTER 2024-11-14 00:10 | Day surgery (SDC) | payer MEDICARE, OTHER, SELFPAY ==
[2024-11-08 11:03] VITALS: BMI 32.7
--- OUTSIDE RECORDS SUMMARY | 2024-11-14 00:12 | XMS_ITS | Clinical Summary ---
Author Organization [facility] Address [address] [place] [place] [address] Care Team Providers Care Quantitative Analyst Marketing Name Role Phone Demetrius Fuentes MD Primary Care Provider [phone] Source Comments [facility],non-owned Affiliates and Associated Physician Practices is amultiple site organization consisting of ambulatory clinics and hospital sitesin [place], [place], [place] and [place]. This disclosure is being madepursuant to the Care Everywhere program and may not contain all information available regarding this patient. Last updated 18.[facility] Shape Collage Allergies Active Allergy Reactions Criticality Noted Date Comments Contrast-Gadolinium Agents For Mri Rash Medium 1 08/10/2016 Medications * Be aware that medications may not be up to date on this document. Alwaysverify current medications with the patient. fluticasone propionate (FLONASE) 50 MCG/ACT nasal spray [place] 1 spray into each nostril DAILY. 3 07/13/2017 Active potassium chloride (KLOR-CON) 10 MEQ tablet Take 10 mEq by mouth BID. 06/09/2017 Active furosemide (LASIX) 40 MG tablet Take 20 mg by mouth DAILY. 06/09/2017 Active simvastatin (ZOCOR) 40 MG tablet Take 40 mg by mouth. 06/09/2017 Active ALPRAZolam, disintegrating, (NIRAVAM) 0.25 MG tablet Take 0.25 mg by mouth. 06/09/2017 Active esomeprazole (NEXIUM) 40 MG capsule Take 40 mg by mouth. 06/09/2017 Active montelukast (SINGULAIR) 10 MG tablet Take 10 mg by mouth DAILY. 06/09/2017 Active levothyroxine (TIROSINT) 125 MCG capsule Take 1 Dose by mouth DAILY. 06/09/2017 Active amLODIPine-gloria zepril (LOTREL) 5-20 MG capsule Take 1 capsule by mouth DAILY. 06/09/2017 Active Escitalopram Oxalate (LEXAPRO PO) Take 1 tablet by mouth once daily Active Active Problems No known active problems Family History Medical History Relation Name Comments Cancer - Skin, Non Melanoma Father Cancer - Skin, Non Melanoma Maternal Aunt Cancer - Skin, Non Melanoma Sister Relation Name Status Comments Father Maternal Aunt Sister Social History Tobacco Use Types Packs/Day Years Used Date Smoking Tobacco: Never Smokeless Tobacco: Never Alcohol Use Standard Drinks/Week Comments Yes 0 (1 standard drink = 0.6 oz pur e alcohol) Comments Unknown Sex and Gender Information Value Date Recorded Sex Assigned at Not on file Legal Sex Female 5:52 PM [employer] Gender Identity Not on file Sexual Orientation Not on file Last Filed Vital Signs Vital Sign Reading Time Taken Comments Blood Pressure 146/89 07/06/2018 12:02 PM [employer] Pulse 76 07/06/2018 12:02 PM [employer] Temperature - - Respiratory Rate - - Oxygen Saturation 97% 07/06/2018 9:45 AM [employer] Inhaled Oxygen Concentration - - Weight 87.1 kg (192 lb) 07/06/2018 9:45 AM [employer] Height 162.6 cm (5' 4 ) 07/06/2018 9:45 AM [employer] Body Mass Index 32.96 07/06/2018 9:45 AM [employer] Plan of Treatment Health Maintenance Due Date Last Done Comments BONE DENSITY TESTING 1955 COLOGUARD (AGES 45-75) - COL ON CA SCREENING 1955 COLON MONITORING 1955 COLONOSCOPY - COLON CA SCREENING 1955 CT COLONOGRAPHY - COLON CA SCREENING 1955 Colorectal Cancer Screening 1955 FIT - COLON CA SCREENING 1955 FLEX SIG - COLON CA SCREENING 1955 MAMMOGRAM 1955 MEDICARE AWV 12 MONTHS 1955 HEPATITIS C SCREENING 07/01/1971 DTAP/TDAP/TD VACCINES (1 - Tdap) 1972 PNEUMOCOCCAL VACCINE 50+ (1 of 1 - PCV) 2003 ZOSTER VACCINE (1 of 2) 2003 SCREENING FOR DIABETES 08/09/2018 COVID-19 VACCINE (1 - 2023-2 5 season) 2024 DEPRESSION SCREENING 06/21/2024 INFLUENZA VACCINE (Season Ended) 2025 Respiratory Syncytial Virus (RSV) Vaccine Pt: or over 60 yrs (1 - 1-dose 75+ series) 2028 HEPATITIS B VACCINE Aged Out No longe r eligible based on patient's age to complete this topic HIB VACCINE Aged Out No longer eligi ble based on patient's age to complete this topic HPV VACCINE Aged Out No longer eligi ble based on patient's age to complete this topic MENINGOCOCCAL (Group B) VACC INE SHARED DECISION-MAKING Aged Out No longer eligibl e based on patient's age to complete this topic MENINGOCOCCAL GROUPS A/C/Y/W VACCINE Aged Out No longer eligible b ased on patient's age to complete this [place] [address] MEDICARE [facility] [address], [place] [address] MEDICARE MEDICARE SUPPLEMENT PAYOR GENERIC * Guarantor: NICOBRIGID Dupont Nixon Account Type Relation to Patient Date of Phone Billing Address Personal/Family 1955 [address], [place] [address] [facility] [place] [address] [place] [address] MEDICARE MEDICARE MEDICARE Member Subscriber Plan / Payer (Ef fective for All Dates) Name:Brigid Barrios I Member ID:[id number] Relation to Subscriber:Self Name:Brigid Barrios I Subscriber ID:[id number] Payer ID:Not on file Group ID:Not on file Type:Medicare Address: [place] [id number] Member Subscriber Plan / Payer (Ef fective for All Dates) Name:Brigid Barrios I Member ID:Not on file Relation to Subscriber:Self Name:Brigid Barrios I Subscriber ID:Not on file Payer ID:[id number] (NAIC) Group ID:Not on file Type:/ Address: [place] [id number] MEDICARE Member Subscriber Plan / Payer (Ef fective for All Dates) Name:Brigid Barrios I Member ID:[id number] Relation to Subscriber:Self Name:Brigid Barrios I Subscriber ID:[id number] Payer ID:Not on file Group ID:Not on file Type:Medicare Address: [place] [phone] MEDICARE Care Teams Quantitative Analyst Marketing Relationship Specialty Start Date End Date Demetrius Fuentes MD PCP - General 05/28/17
[2024-11-14 11:44] VITALS: BP 109/85; PULSE 88; RESP 18; TEMP 36.7; O2SAT 97
[2024-11-14] MEDS: LACTATED RINGERS 1,000 ML 150 ML IV CONT (11:57)
--- NOTE | 2024-11-14 12:17 | P.PNAN_ITS ---
Anes - Initial Pre Proc Eval Procedure: Operation Date: 11/14/24 13:00 Proposed Procedures p Colonoscopy - Andrea Buenrostro MD Date/Time: 11/14/24 12:17 Surgeon: Andrea Buenrostro MD Pre Op Diagnosis: Personal history of colon polyps, unspecified Patient Data Age: 69 Gender: F Height: 1.63 m Weight: 86.7 kg Last Vital Signs Temp 98.0 F 11/14/24 11:44 Pulse 88 11/14/24 11:44 Resp 18 11/14/24 11:44 BP 109/85 11/14/24 11:44 Pulse Ox 97 11/14/24 11:44 O2 Del Method Room Air 11/14/24 11:44 Allergies Allergy/AdvReac Type Severity Reaction Status Date / Time Iodine and Iodide Containing Allergy Severe Hives Verified 11/08/24 10:56 Produc Home Medications ?Medication ?Instructions ?Recorded ?Confirmed ?Type ezetimibe 10 mg tablet (Zetia) 10 mg PO DAILY 04/05/24 11/14/24 History losartan 100 mg tablet See Rx Instructions .Route 05/08/24 11/14/24 Rx .COMPLEX #90 tabs ergocalciferol (vitamin D2) 1,250 1,250 mcg PO WEEKLY #12 caps 06/01/24 11/14/24 Rx mcg (50,000 unit) capsule (Vitamin D2) albuterol sulfate 90 mcg/actuation See Rx Instructions .Route 06/05/24 11/08/24 Rx aerosol inhaler .COMPLEX #25.5 grams alprazolam 0.5 mg tablet 0.5 mg PO DAILY PRN Anxiety #30 06/27/24 11/08/24 Rx tabs fluticasone propionate 115 2 puff inhalation BID #12 grams 07/14/24 11/14/24 Rx mcg-salmeterol 21 mcg/actuation HFA inhaler (Advair HFA) potassium chloride 10 mEq 10 meq PO DAILY #90 caps 08/15/24 11/14/24 Rx capsule,extended release pantoprazole 40 mg tablet,delayed 40 mg PO DAILY 11/08/24 11/14/24 History release escitalopram oxalate 20 mg tablet 20 mg PO DAILY #90 tabs 11/09/24 11/14/24 Rx furosemide 40 mg tablet 20 mg (1/2 x 40 mg) PO QAM #90 tabs 11/09/24 11/14/24 Rx levothyroxine 125 mcg tablet 125 mcg PO DAILY #90 tabs 11/09/24 11/14/24 Rx rosuvastatin 40 mg tablet 40 mg PO DAILY #90 tabs 11/09/24 11/14/24 Rx montelukast 10 mg tablet 10 mg PO DAILY #90 tabs 11/13/24 11/14/24 Rx Patient hx anesthesia problems: none Family hx anesthesia problems: none Results Review: All pre-operative results and documents have been reviewed as part of the pre- operative evaluation. [facility] Past Medical History Medical History (Updated 04/05/24 @ 11:13 by Loren Kaplan MD) Syncope Endometriosis Ovarian cyst Adenomatous colon polyp Hyperactive bowel sounds Gas bloat syndrome Irritable bowel syndrome with diarrhea Elevated LFTs US showed fatty liver 08/2022 Pre-diabetes Gastroesophageal reflux Chronic allergic rhinitis Anxiety Iron deficiency anemia Spinal stenosis Hyperlipidemia Hypertension Hypothyroidism Surgical History Surgical History History of Rachael fundoplication 10/31/21 H/O hernia repair lap paraesophageal hernia repair with Rachael History of incisional hernia repair Date unknown - incision from previous emergent Hx of neck surgery History of esophagogastroduodenoscopy (EGD) Hx of section S/p bilateral myringotomy with tube placement History of appendectomy History of tonsillectomy H/O: hysterectomy H/O cervical discectomy Family History Family History Father Hypertension Heart disease Hyperlipidemia Depression Malignant neoplasm of prostate Cerebrovascular accident Alzheimer disease History of quadruple bypass Sibling Hypertension Hyperlipidemia Depression Cerebrovascular accident Sibling Depression Bipolar disorder Hypertension Hyperlipidemia Other Kidney stone Seizure Skin cancer Social History Social History Social History: Surrogate medical decision maker: Gulshan Barrios, spouse. Code status: Full code. Smoking status: Never smoker Second hand tobacco smoke exposure: No Alcohol intake: current Drinks per week: 14 Alcohol use details: wine Substance use: never Substance use type: does not use Do You Feel Safe in your Home?: Yes Lack of Transportation: No Lack of Food: Never True Current Housing: I Have Housing Concerned About Future Housing: No Difficulty Paying Gas/Electric Bills: No Difficulty Paying for Meds: No Currently Unemployed: No Education: Bachelor's Degree Difficulty w/ Childcare or Family Care: No Living arrangements: with family Additional living arrangements comments: with sp Occupation/Education: retired Spiritual care concerns: No Anes - Eval Final PreProcedure Day of Procedure 11/14/24 12:17 Patient weight: obese Heart: regular rate and rhythm Lungs: clear to auscultation Airway: Mallampati scale class II Neurological: alert and oriented Last oral intake: >/= 8 hours ASA classification: III Emergent: no Anesthetic plan: proceed Anesthesia type and monitoring: general GIVS and standard monitoring Results Review: All pre-operative results and documents have been reviewed as part of the pre- operative evaluation. Informed Consent: The patient's anesthetic plan and its attendant risks and benefits were discussed with the patient/family/POA. Questions were solicited and answers provided to the satisfaction of the patient/family/POA.
--- NOTE | 2024-11-14 12:40 | P.HP_ITS ---
History of Present Illness History of Present Illness Consent: Risks, benefits, and alternatives have been discussed and questions answered. Patient agrees to proceed with procedure. Chief complaint: Personal history of colon polyps, unspecified Narrative: Brigid Barrios is a 69 year old female with colon polyp in 2021 Review of Systems Review of Systems: All systems reviewed & are unremarkable except as noted in HPI and below PMFSH Past Medical History Medical History (Updated 04/05/24 @ 11:13 by Loren Kaplan MD) Syncope Endometriosis Ovarian cyst Adenomatous colon polyp Hyperactive bowel sounds Gas bloat syndrome Irritable bowel syndrome with diarrhea Elevated LFTs US showed fatty liver 08/2022 Pre-diabetes Gastroesophageal reflux Chronic allergic rhinitis Anxiety Iron deficiency anemia Spinal stenosis Hyperlipidemia Hypertension Hypothyroidism Surgical History Surgical History History of Rachael fundoplication 10/31/21 H/O hernia repair lap paraesophageal hernia repair with Rachael History of incisional hernia repair Date unknown - incision from previous emergent Hx of neck surgery History of esophagogastroduodenoscopy (EGD) Hx of section S/p bilateral myringotomy with tube placement History of appendectomy History of tonsillectomy H/O: hysterectomy H/O cervical discectomy Family History Family History Father Hypertension Heart disease Hyperlipidemia Depression Malignant neoplasm of prostate Cerebrovascular accident Alzheimer disease History of quadruple bypass Sibling Hypertension Hyperlipidemia Depression Cerebrovascular accident Sibling Depression Bipolar disorder Hypertension Hyperlipidemia Other Kidney stone Seizure Skin cancer Social History Social History Social History: Surrogate medical decision maker: Gulshan Barrios, spouse. Code status: Full code. Smoking status: Never smoker Second hand tobacco smoke exposure: No Alcohol intake: current Drinks per week: 14 Alcohol use details: wine Substance use: never Substance use type: does not use Do You Feel Safe in your Home?: Yes Lack of Transportation: No Lack of Food: Never True Current Housing: I Have Housing Concerned About Future Housing: No Difficulty Paying Gas/Electric Bills: No Difficulty Paying for Meds: No Currently Unemployed: No Education: Bachelor's Degree Difficulty w/ Childcare or Family Care: No Living arrangements: with family Additional living arrangements comments: with sp Occupation/Education: retired Spiritual care concerns: No Meds Home Medications and Allergies Home Medications ?Medication ?Instructions ?Recorded ?Confirmed ?Type ezetimibe 10 mg tablet (Zetia) 10 mg PO DAILY 04/05/24 11/14/24 History losartan 100 mg tablet See Rx Instructions .Route 05/08/24 11/14/24 Rx .COMPLEX #90 tabs ergocalciferol (vitamin D2) 1,250 1,250 mcg PO WEEKLY #12 caps 06/01/24 11/14/24 Rx mcg (50,000 unit) capsule (Vitamin D2) albuterol sulfate 90 mcg/actuation See Rx Instructions .Route 06/05/24 11/08/24 Rx aerosol inhaler .COMPLEX #25.5 grams alprazolam 0.5 mg tablet 0.5 mg PO DAILY PRN Anxiety #30 06/27/24 11/08/24 Rx tabs fluticasone propionate 115 2 puff inhalation BID #12 grams 07/14/24 11/14/24 Rx mcg-salmeterol 21 mcg/actuation HFA inhaler (Advair HFA) potassium chloride 10 mEq 10 meq PO DAILY #90 caps 08/15/24 11/14/24 Rx capsule,extended release pantoprazole 40 mg tablet,delayed 40 mg PO DAILY 11/08/24 11/14/24 History release escitalopram oxalate 20 mg tablet 20 mg PO DAILY #90 tabs 11/09/24 11/14/24 Rx furosemide 40 mg tablet 20 mg (1/2 x 40 mg) PO QAM #90 tabs 11/09/24 11/14/24 Rx levothyroxine 125 mcg tablet 125 mcg PO DAILY #90 tabs 11/09/24 11/14/24 Rx rosuvastatin 40 mg tablet 40 mg PO DAILY #90 tabs 11/09/24 11/14/24 Rx montelukast 10 mg tablet 10 mg PO DAILY #90 tabs 11/13/24 11/14/24 Rx Allergies Allergy/AdvReac Type Severity Reaction Status Date / Time Iodine and Iodide Containing Allergy Severe Hives Verified 11/08/24 10:56 Produc Vital Signs Vital Signs - 24 hr 11/14/24 11:44 Temperature 98.0 F Pulse Rate 88 Respiratory Rate 18 Blood Pressure 109/85 Pulse Oximetry 97 Oxygen Delivery Room Air Exam Const: General: comfortable and no acute distress HENMT: Face/Nose/Sinus: Normal nares present Eyes: General: appearance normal, both eyes and all related structures Neck: Neck: no JVD Resp: Auscultation: clear to auscultation bilaterally Cardio: Rate: regular rate Rhythm: regular rhythm GI: Inspection: non-distended GI Palp: Yes Soft to palpation Skin: General skin exam: normal color Neuro: General: gait normal Speech: normal speech Extrem: General: normal to inspection Psych: Mental Status: mental status grossly normal Assessment and Plan Assessment and plan (1) History of colon polyps: Code(s): Z86.010 - Personal history of colon polyps Status: Acute Assessment and Plan: colonoscopy
[2024-11-14 13:07] VITALS: BP 104/67; PULSE 75; RESP 19; O2SAT 96
[2024-11-14 13:17] VITALS: BP 135/75; PULSE 67; RESP 19; O2SAT 100
[2024-11-14 13:27] VITALS: BP 150/77; PULSE 65; RESP 17; O2SAT 100
== END 2024-11-14 13:35 | disposition home or self-care (01) ==
PROVIDERS: PCP Family Medicine; Referring Provider Internal Medicine Gastroenterology; Visit Provider Internal Medicine Gastroenterology
PROC: 0DJD8ZZ Inspection of Lower Intestinal Tract, Via Natural or Artificial Opening Endoscopic (ICD-10-PCS; CPT 45378; principal; 2024-11-14 13:00)
DX: Z12.11 Encounter for screening for malignant neoplasm of colon (principal); D12.3 Benign neoplasm of transverse colon; K64.8 Other hemorrhoids; K57.30 Diverticulosis of large intestine without perforation or abscess without bleeding; E78.5 Hyperlipidemia, unspecified; I10 Essential (primary) hypertension; E03.9 Hypothyroidism, unspecified; K58.0 Irritable bowel syndrome with diarrhea; R73.03 Prediabetes; K21.9 Gastro-esophageal reflux disease without esophagitis; F41.9 Anxiety disorder, unspecified; D50.9 Iron deficiency anemia, unspecified; N80.9 Endometriosis, unspecified; J30.9 Allergic rhinitis, unspecified; E66.9 Obesity, unspecified; Z68.32 Body mass index [BMI] 32.0-32.9, adult; Z79.51 Long term (current) use of inhaled steroids; Z98.890 Other specified postprocedural states; Z98.1 Arthrodesis status; Z86.0101 Personal history of adenomatous and serrated colon polyps; Z80.49 Family history of malignant neoplasm of other genital organs; Z84.0 Family history of diseases of the skin and subcutaneous tissue; Z82.49 Family history of ischemic heart disease and other diseases of the circulatory system
CPT/HCPCS: 45385; 88305; J2003; J2704; J7120

== ENCOUNTER 2025-03-02 13:23 | Outpatient (CLI) | payer MEDICARE, OTHER, SELFPAY ==
--- NOTE | 2025-03-02 13:48 | ECG_ITS ---
Test Date: 2025-03-02 13:57:48 Measurements Intervals [place] Rate: 78 P: 32 [place]: 168 QRS: 18 QRSD: 82 T: 61 QT: 358 QTc: 409 Interpretive Statements SINUS RHYTHM NONSPECIFIC T-WAVE ABNORMALITY No previous ECG available for comparison Electronically Signed On 03-02-2025 15:46:50 CDT by Henry Lewis M.D.
--- OUTSIDE RECORDS SUMMARY | 2025-03-02 14:13 | XMS_ITS | Clinical Summary ---
Author Organization [facility] Address [address] [place] [address] Care Team Providers Care Travel Insurance Agent Name Role Phone Demetrius Fuentes MD Primary Care Provider [phone] Source Comments [facility],non-owned Affiliates and Associated Physician Practices is amultiple site organization consisting of ambulatory clinics and hospital sitesin [place], [place] and [place]. This disclosure is being madepursuant to the Care Everywhere program and may not contain all information available regarding this patient. Last updated 18.[facility] [employer] Allergies Active Allergy Reactions Criticality Noted Date Comments Contrast-Gadolinium Agents For Mri Rash Medium 1 08/10/2016 Medications * Be aware that medications may not be up to date on this document. Alwaysverify current medications with the patient. fluticasone propionate (FLONASE) 50 MCG/ACT nasal spray [place] 1 spray into each nostril DAILY. 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 RESEARCH ECOLOGIST Temperature - - Respiratory Rate - - Oxygen Saturation 97% 07/06/2018 9:45 AM WILDLIFE BIOSTATION RESEARCH ECOLOGIST Inhaled Oxygen Concentration - - Weight 87.1 kg (192 lb) 07/06/2018 9:45 AM WILDLIFE BIOSTATION RESEARCH ECOLOGIST Height 162.6 cm (5' 4) 07/06/2018 9:45 AM WILDLIFE BIOSTATION RESEARCH ECOLOGIST Body Mass Index 32.96 07/06/2018 9:45 AM WILDLIFE BIOSTATION RESEARCH ECOLOGIST Plan of Treatment Health Maintenance Due Date [...] of 2) 2003 SCREENING FOR DIABETES 08/09/2018 DEPRESSION SCREENING 06/21/2024 COVID-19 VACCINE (1 - 2023-2 5 season) 2025 INFLUENZA VACCINE (#1) 2025 Respiratory Syncytial Virus (RSV) Vaccine Pt: [...] to complete this [place] [address] MEDICARE [facility] MEDICARE MEDICARE SUPPLEMENT PAYOR GENERIC MEDICARE [facility] SELF PAY NO INSURANCE Member Subscriber Plan / Payer (Ef fective for All Dates) Name:Brigid Barrios I Member ID:Not on file Relation to Subscriber:Not on file Name:BRIGID BARRIOS I Subscriber ID:Not on file (Home) Address: [address] [place] [address] Payer ID:Not on file Group ID:Not on file Type:Self Pay Address: [place], [place] * Guarantor: NICOBRIGID Dupont Nixon Account Type Relation to Patient Date of Phone Billing Address Personal/Family [address] [place], [place] [id number] [place] [address] MEDICARE MEDICARE Member Subscriber Plan / Payer (Ef fective for All Dates) Name:Brigid Barrios I Member ID:[id number] Relation to Subscriber:Self Name:Brigid Barrios I Subscriber ID:[id number] Payer ID:Not on file Group ID:Not on file Type:Medicare Address: [place] [address] [place] [address] MEDICARE MEDICARE [facility] MEDICARE Care Teams Travel Insurance Agent Relationship Specialty Start Date End Date Demetrius Fuentes MD PCP - General 05/28/17
--- OUTSIDE RECORDS SUMMARY | 2025-03-02 14:13 | XMS_ITS | Clinical Summary ---
Author Organization [facility] Address [address] [place] [address] Care Team Providers Care Outbound Sales Consultant Name Role Phone Demetrius Fuentes MD Unavailable [phone] Loren Kaplan MD Primary Care Provider [phone] Allergies Active Allergy Reactions Criticality Noted Date Comments Gadolinium-Containing Contrast Media Rash Medium 06/09/2017 Iodine Hives,Rash Medium MRI dye Medications ALPRAZolam (XANAX) 1 mg tablet take 1 tablet by oral route 3 times every day 0 0 6 Active montelukast (SINGULAIR) 10 mg tablet Take 1 tablet (10 mg total) by mouth nightly Active ergocalciferol (VITAMIN D) 50,000 unit capsule Take 1 capsule (50,000 Units total) by mouth 2 Active escitalopram (LEXAPRO) 20 mg tablet Take 1 tablet (20 mg total) by mouth daily 2 Active Advair HFA 115-21 mcg/actuation inhaler Inhale 2 puffs 2 (two) times a day 2 Active fluticasone propionate (FLONASE) 50 mcg/actuation nasal spray Administer 1 spray into affected nostril(s) daily [address] (PROTONIX) 40 mg EC tablet Take 1 tablet (40 mg total) by mouth 2 (two) times a day 2 Active potassium chloride ER 10 mEq CR tablet Take 1 tablet/capsule (10 mEq total) by mouth daily 2 Active levothyroxine (SYNTHROID) 125 mcg tablet Take 1 tablet (125 mcg total) by mouth daily 2 Active albuterol HFA (PROVENTIL HFA,VENTOLIN HFA,PROAIR HFA) 90 mcg/actuation inhaler INHALE 1 PUFF BY MOUTH EVERY 4 HOURS NEEDED FOR SHORTNESS OF BREATH OR WHEEZING 2 Active rosuvastatin (CRESTOR) 40 mg tablet Take 1 tablet (40 mg total) by mouth daily Increase in dose 90 tablet 3 4 Active losartan (COZAAR) 100 mg tablet Take 1 tablet (100 mg total) by mouth daily Active furosemide (LASIX) 40 mg tablet Take 1 tablet (40 mg total) by mouth daily Active evolocumab (REPATHA) syringe syringeIndicati ons:hypercholes terolemia Inject 1 mL (140 mg total) under the skin every 2 (two) weeks 2 mL 11 4 Active SUMAtriptan (IMITREX) 20 mg/actuation nasal sprayIndication s:Migraine Administer 1 spray (20 mg total) into one nostril every 2 (two) hours as needed for migraine for up to 15 doses 1 each 3 5 Active tiZANidine (ZANAFLEX) 2 mg tablet Take 1-2 tablets (2-4 mg total) by mouth nightly as needed for muscle spasms 60 tablet 1 5 Active ezetimibe (ZETIA) 10 mg tablet Take 1 tablet (10 mg total) by mouth daily 90 tablet 3 5 01/11/20 26 Active Active Problems Problem Noted Date Diagnosed Date Migraine headache 09/12/2024 Orthostatic hypotension 06/08/2024 Assessment & Plan (06/08/2024 11:21 AM MEDICAL LIBRARIAN): See plan under HTN. Dyslipidemia 06/08/2024 Assessment & Plan (06/08/2024 11:18 AM MEDICAL LIBRARIAN): Elevated cholesterol with concern for familial hypercholesterolemia. Zetia was added to her medication regimen in February of 2024. Plan was to repeat in 3 months and consider injectable if remains poorly controlled at that time. It was also recommended for her to undergo genetic testing for FH. Continue Crestor 40 mg daily and ezetimibe 10 mg daily. Repeat fasting lipid panel today. If cholesterol remains poorly controlled we will consider adding injectable. Will work on genetic testing. HTN (hypertension) 05/09/2024 Assessment & Plan (06/08/2024 11:20 AM MEDICAL LIBRARIAN): Hypertension with labile blood pressures and symptomatic hypotension. She has recently had changes to her medication regimen over the past 3 months in which her spironolactone, amlodipine and benazepril was stopped. She has remained on losartan 100 mg daily and Lasix 40 mg daily. Per patient these changes have improved labile blood pressures. Blood pressure above goal today. Continue losartan 100 mg daily and Lasix 40 mg daily. We will have her keep a blood pressure diary for 1-2 weeks and return to us for review. If blood pressures averaging >130/80 then will plan to trial her on low- dose amlodipine at 2.5 mg daily with close monitoring given history of symptomatic orthostatic hypotension. Surgical History Surgery Date Site/Laterality Comments TONSILLECTOMY Tonsillectomy SECTION HYSTERECTOMY ESOPHAGOGASTRODUODENOSCOPY COLONOSCOPY Medical History Medical History Date Comments Hx Other Medical Allergies, seas onal Depression Depression Hypertension Hypertension PONV (postoperative nausea and vomiting) GERD (gastroesophageal reflux disease) Diverticulosis Hypothyroidism Bipolar disorder Family History Medical History Relation Name Comments Hyperlipidemia Father Transient ischemic attack Father Breast cancer Other 1 Family history of Cancer, breast; Lung cancer Other 2 Family history of Cancer, lung; Alzheimer's disease Other 3 Family h istory of Alzheimer's disease; Bipolar disorder Other 4 Family hist ory of Bipolar disorder; Dementia Other 5 Family history of Dementia; Heart disease Other 6 Family history of Heart disease; Relation Name Status Comments Father Other 1 Other 2 Other 3 Other 4 Other 5 Other 6 Social History Tobacco Use Types Packs/Day Years Used Date Smoking Tobacco: Never Smokeless Tobacco: Never Tobacco Cessation:Counseling Given: Not Answered Alcohol Use Standard Drinks/Week Comments Yes 0 (1 standard drink = 0.6 oz pur e alcohol) 5x/week Personal Safety Answer Date Recorded Have you ever been in or are you currently in a harmful physical or emotional relationship or is someone making you feel afraid or unsafe? Denies 02/04/2024 Comments No Sex and Gender Information Value Date Recorded Sex Assigned at Not on file Legal Sex Female 8:17 PM MEDICAL LIBRARIAN Gender Identity Female 03/22/2024 1:06 PM CDT Sexual Orientation Not on file Obstetrics History Last Filed Vital Signs Vital Sign Reading Time Taken Comments Blood Pressure 155/83 09/12/2024 11:17 AM CDT Pulse 73 09/12/2024 11:17 AM CDT Temperature 36.2 C (97.1 F) 02/05/2024 2:34 AM CDT Respiratory Rate 18 02/05/2024 2:34 AM CDT Oxygen Saturation 97% 06/08/2024 10:19 AM MEDICAL LIBRARIAN Inhaled Oxygen Concentration - - Weight 87.1 kg (192 lb) 09/12/2024 11:17 AM CDT Height 162.6 cm (5' 4) 09/12/2024 11:17 AM CDT Body Mass Index 32.96 09/12/2024 11:17 AM CDT Plan of Treatment Health Maintenance Due Date Last Done Comments Depression Screening 1955 Fall Risk Assessment 1955 Hepatitis C Screening 1955 Hepatitis B Screening 1971 Pneumococcal vaccine 65+ (1 of 1 - PCV) 2003 Zoster Vaccine (1 of 2) 2003 Well Visit 65+ 2018 Osteoporosis Screening-Bone Density Scan 08/30/2021 08/31/2019 Breast Cancer Screening-Mammogram 12/02/2021 12/02/2020, 07/21/2019, 06/27/2018, Additional history exists Influenza Vaccine (#1) 2025 07/18/2019 Colon Cancer Screening-Colonoscopy 06/06/2028 06/06/2018 DTaP/Tdap/Td Vaccine (2 - Td or Tdap) 08/14/2033 08/14/2023 Colon Cancer Screening-CT Colonography Discontinued 06/06/2018 Colon Cancer Screening-DNA Stool Discontinued 06/06/20 18 Colon Cancer Screening-FIT Discontinued 06/06/2018 Colon Cancer Screening-Sigmoidoscopy Discontinued 06/06/2018 Procedures Procedure Name Priority Date/Time Associated Diagnosis Comments SCREENING MAMMOGRAM BILATERAL W SUNDAR Schedule Routine, Read Routine (OP Routine) 12/02/2020 2:40 PM CDT Encounter for screening mammogram for malignant neoplasm of breast DEXA AXIAL SKELETON BONE DENSITY 1 OR MORE SITES Schedule Routine, Read Routine (OP Routine) 08/31/2019 11:29 AM CDT Osteoporosis, unspecified osteoporosis type, unspecified pathological fracture presence COLONOSCOPY 06/06/2018 2:46 PM MEDICAL LIBRARIAN from Last 3 Months or Most Recently Relevant to Health Maintenance Results * Screening Mammogram Bilateral W Sundar (12/02/2020 2:40 PM CDT) Anatomical Region Laterality Modality Breast Bilateral Mammography Narrative 12/04/2020 10:16 AM CDT Mammogram Technique: Bilateral Digital Breast Tomosynthesis, Bilateral C-view 2D Screening mammogram. Views obtained: bilateral craniocaudal and bilateral mediolateral oblique. Computer Aided Detection was performed. Mammogram Findings: The present examination has been compared to prior imaging studies performed at [facility] on 03/08/2017, 06/27/2018 and 07/21/2019. There are scattered areas of fibroglandular density. There is no suspicious abnormality in either breast. Impression: There is no mammographic evidence of malignancy. Annual screening mammography is recommended. OVERALL FINAL ASSESSMENT: BI-RADS CATEGORY 1: Negative. Procedure Note Celena Montes MD - 12/04/2020 Mammogram Technique: Bilateral Digital Breast Tomosynthesis, Bilateral C-view 2D Screening mammogram. Views obtained: bilateral craniocaudal and bilateral mediolateral oblique. Computer Aided Detection was performed. Mammogram Findings: The present examination has been compared to prior imaging studies performed at [facility] on 03/08/2017, 06/27/2018 and 07/21/2019. There are scattered areas of fibroglandular density. There is no suspicious abnormality in either breast. Impression: There is no mammographic evidence of malignancy. Annual screening mammography is recommended. OVERALL FINAL ASSESSMENT: BI-RADS CATEGORY 1: Negative. us Self Screening Mammogram IMG MAMMO PROCEDURES Fi nal Result * Dexa Axial Skeleton Bone Density 1 or 2 Site (08/31/2019 11:29 AM CDT) Anatomical Region Laterality Modality Body N/A Digital Radiogra phy 08/31/2019 1:14 PM CDT Impressions 08/31/2019 1:27 PM CDT 1. The bone mineral density of the lumbar spine is normal. 2. The bone mineral density of the left femoral neck is normal. 3. The bone mineral density of the left total hip is normal. 4. Overall, the above findings are normal by WHO criteria. 5. Calculation of fracture risk using the FRAX model is not appropriate in certain settings. It was not performed in this patient because the patient met the following condition(s): normal bone density. General comments regarding interpretation of bone density measurements: A) In children, premenopausal woman and males under age 50 not at increased risk for fractures only Z-scores, not T-scores are used to indicate risk. A Z-score above -2.0 is defined as within the expected range for age and Z-score at or less than -2.0 is below the expected range for age. A Z-score below the expected range for age in a patient with recent fractures and/or chronic corticosteroid treatment is consistent with a diagnosis of osteoporosis. B) In post menopausal women and males over 50, comparison of the measured bone mineral density with the average value in young normal subjects (the T-score) has been found to be useful in assessing fracture risk. Fracture risk approximately doubles for each 1.0 standard deviation (SD) in individual's hip or spine bone mineral density is below the average value of young normal subjects. The World Health Organization (WHO) has defined T-scores of -1.0 to -2.5 as diagnostic of low bone mass (OSTEOPENIA), and T-scores of -2.5 or lower to be diagnostic of OSTEOPOROSIS, based on the site of lowest bone density. Note that there will be a change in reporting format and reference databases as patients move from the younger population (group A) to the older population (group B) The National Osteoporosis Foundation (www.nof.org) recommends adequate intake of calcium and vitamin D and regular weight-bearing exercise in all patients. They recommend pharmacologic treatment in postmenopausal women and men age 50 and older presenting with any of the followin) Osteoporosis, after appropriate evaluation to exclude secondary causes. 2) A hip or vertebral (clinical or radiographic) fracture, regardless of the bone density. 3) Low bone mass (Osteopenia) and one or more of: other prior fractures, secondary causes associated with high risk of fracture (such as glucocorticoid use or total immobilization), or computed high risk of fracture (10-yr probability of hip fracture >= 3% or a 10-yr probability of any major osteoporosis-related fracture >= 20% based on the [place].-adapted WHO algorithm), available at http://www.shef.ac.uk/FRAX). Dictated by: Dexter Verma M.D. The radiology attending physician has personally reviewed this study, and had reviewed and/or edited this written report and agrees with it. Electronically signed by: Jose Paul M.D. Narrative 08/31/2019 1:27 PM CDT BONE DENSITOMETRY OF THE SPINE AND HIP DATE OF STUDY: 08/31/2019 HISTORY: 64-year-old postmenopausal woman with hysterectomy and removal of ovaries at age 41. She is being treated with no antiresorptive medications. Evaluate bone mineral density. Additional risk factors for fracture: None. FINDINGS (SPINE): The bone mineral density of L1, L2, L3 was assessed by dual-energy x-ray absorptiometry. The average bone mineral density within this region is 1.089 gm/sq-cm. This is 2.4 standard deviations above the mean of the average bone mineral density for age- and gender-matched subjects (the Z-score). It is 0.6 standard deviations above the mean peak bone mineral density in young adults (the T-score). L4 was removed from analysis because of degenerative changes. FINDINGS (FEMORAL NECK): The bone mineral density of the left femoral neck was assessed by dual-energy x-ray absorptiometry. The average bone mineral density within the femoral neck region is 0.782 gm/sq-cm. This is 1.0 standard deviations above the mean of the average bone mineral density for age- and gender-matched subjects (the Z-score). It is 0.6 standard deviations below the mean peak bone mineral density in young adults (the T-score). FINDINGS (TOTAL HIP): The bone mineral density of the left hip was assessed by dual-energy x-ray absorptiometry. The average bone mineral density within the total hip region is 1.007 gm/sq-cm. This is 1.8 standard deviations above the mean of the average bone mineral density for age- and gender-matched subjects (the Z-score). It is 0.5 standard deviations above the mean peak bone mineral density in young adults (the T-score). SUMMARY OF CURRENT RESULTS: Region BMD T-score Z-score AP Spine (L1, L2, L3) 1.089 0.6 2.4 Femoral Neck (Left) 0.782 -0.6 1.0 Total Hip (Left) 1.007 0.5 1.8 Procedure Note Jose Paul MD - 08/31/2019 BONE DENSITOMETRY OF THE SPINE AND HIP DATE OF STUDY: 08/31/2019 HISTORY: 64-year-old postmenopausal woman with hysterectomy and removal of ovaries at age 41. She is being treated with no antiresorptive medications. Evaluate bone mineral density. Additional risk factors for fracture: None. FINDINGS (SPINE): The bone mineral density of L1, L2, L3 was assessed by dual-energy x-ray absorptiometry. The average bone mineral density within this region is 1.089 gm/sq-cm. This is 2.4 standard deviations above the mean of the average bone mineral density for age- and gender-matched subjects (the Z-score). It is 0.6 standard deviations above the mean peak bone mineral density in young adults (the T-score). L4 was removed from analysis because of degenerative changes. FINDINGS (FEMORAL NECK): The bone mineral density of the left femoral neck was assessed by dual-energy x-ray absorptiometry. The average bone mineral density within the femoral neck region is 0.782 gm/sq-cm. This is 1.0 standard deviations above the mean of the average bone mineral density for age- and gender-matched subjects (the Z-score). It is 0.6 standard deviations below the mean peak bone mineral density in young adults (the T-score). FINDINGS (TOTAL HIP): The bone mineral density of the left hip was assessed by dual-energy x-ray absorptiometry. The average bone mineral density within the total hip region is 1.007 gm/sq-cm. This is 1.8 standard deviations above the mean of the average bone mineral density for age- and gender-matched subjects (the Z-score). It is 0.5 standard deviations above the mean peak bone mineral density in young adults (the T-score). SUMMARY OF CURRENT RESULTS: Region BMD T-score Z-score AP Spine (L1, L2, L3) 1.089 0.6 2.4 Femoral Neck (Left) 0.782 -0.6 1.0 Total Hip (Left) 1.007 0.5 1.8 IMPRESSION: 1. The bone mineral density of the lumbar spine is normal. 2. The bone mineral density of the left femoral neck is normal. 3. The bone mineral density of the left total hip is normal. 4. Overall, the above findings are normal by WHO criteria. 5. Calculation of fracture risk using the FRAX model is not appropriate in certain settings. It was not performed in this patient because the patient met the following condition(s): normal bone density. General comments regarding interpretation of bone density measurements: A) In children, premenopausal woman and males under age 50 not at increased risk for fractures only Z-scores, not T-scores are used to indicate risk. A Z-score above -2.0 is defined as within the expected range for age and Z-score at or less than -2.0 is below the expected range for age. A Z-score below the expected range for age in a patient with recent fractures and/or chronic corticosteroid treatment is consistent with a diagnosis of osteoporosis. B) In post menopausal women and males over 50, comparison of the measured bone mineral density with the average value in young normal subjects (the T-score) has been found to be useful in assessing fracture risk. Fracture risk approximately doubles for each 1.0 standard deviation (SD) in individual's hip or spine bone mineral density is below the average value of young normal subjects. The World Health Organization (WHO) has defined T-scores of -1.0 to -2.5 as diagnostic of low bone mass (OSTEOPENIA), and T-scores of -2.5 or lower to be diagnostic of OSTEOPOROSIS, based on the site of lowest bone density. Note that there will be a change in reporting format and reference databases as patients move from the younger population (group A) to the older population (group B) The National Osteoporosis Foundation (www.nof.org) recommends adequate intake of calcium and vitamin D and regular weight-bearing exercise in all patients. They recommend pharmacologic treatment in postmenopausal women and men age 50 and older presenting with any of the followin) Osteoporosis, after appropriate evaluation to exclude secondary causes. 2) A hip or vertebral (clinical or radiographic) fracture, regardless of the bone density. 3) Low bone mass (Osteopenia) and one or more of: other prior fractures, secondary causes associated with high risk of fracture (such as glucocorticoid use or total immobilization), or computed high risk of fracture (10-yr probability of hip fracture >= 3% or a 10-yr probability of any major osteoporosis-related fracture >= 20% based on the [place].-adapted WHO algorithm), available at http://www.shef.ac.uk/FRAX). Dictated by: Dexter Verma M.D. The radiology attending physician has personally reviewed this study, and had reviewed and/or edited this written report and agrees with it. Electronically signed by: Jose Paul M.D. Demetrius Fuentes MD IMG DXA PROCEDURES Final Resu lt * COLONOSCOPY (06/06/2018 2:46 PM MEDICAL LIBRARIAN) Anatomical Region Laterality Modality Other Narrative Procedure Note Esperanza Alvarez MD - 06/06/2018 2:46 PM CST ENDOSCOPY LAB Patient Name: Brigid Barrios Procedure Date: 06/06/2018 2:46 PM Date of : 1955 Admit Type: Outpatient Age: 62 Gender: Female Attending MD: Esperanza Alvarez MD Room: [place] [address] Note Status: Finalized Procedure Date No Time: 06/06/2018 Procedure: Colonoscopy Indications: High risk colon cancer surveillance: Personal historyof colonic polyps, Last colonoscopy: 2013 Providers: Esperanza Alvarez MD Referring MD: Demetrius Fuentes MD Medicines: Monitored Anesthesia Care Complications: No immediate complications. Estimated Blood Loss: Estimated blood loss: none. Procedure: Pre-Anesthesia Assessment: - Immediately prior to administration of medications,the patient was re-assessed for adequacy to receivesedatives. The benefits, risks and alternatives of the procedureand sedation were discussed and informed consent wasobtained. All questions were answered. Please refer to the signed informed consent document in the medical record. Thescope was passed under direct vision. The [id number] introduced through the anus and advanced to the cecum, identified by appendiceal orifice and ileocecal valve.The colonoscopy was performed without difficulty. Thepatient tolerated the procedure well. The quality of the bowel preparation was evaluated using the BBPS ([place] Bowel Preparation Scale) with scores of: Right Colon = 2(minor amount of residual staining, small fragments of stool and/or opaque liquid, but mucosa seen well), Transverse Colon = 3 (entire mucosa seen well with no residual staining, small fragments of stool or opaque liquid)and Left Colon = 2 (minor amount of residual staining,small fragments of stool and/or opaque liquid, but mucosaseen well). The total BBPS score equals 7. The bowel preparation used was GoLYTELY. Findings: A 15 mm polyp was found in the cecum. The polyp was sessile andcarpet like. The polyp was removed with a saline injection-lift techniqueusing a hot snare. Resection and retrieval were complete. To preventbleeding after the polypectomy, two hemostatic clips were successfully placed. There was no bleeding during, or at the end, of the procedure. A 4 mm polyp was found in the ascending colon. The polyp was sessile. The polyp was removed with a jumbo cold forceps. Resection andretrieval were complete. Multiple small and large-mouthed diverticula were found in thesigmoid colon and in the ascending colon. Two sessile polyps were found in the rectum. The polyps were 3 mm in size. These polyps were removed with a cold biopsy forceps. Resection and retrieval were complete. Non-bleeding internal hemorrhoids were found during retroflexion. The hemorrhoids were medium-sized. Impression: - One 15 mm polyp in the cecum. Resected and retrieved. Clips were placed. - One 4 mm polyp in the ascending colon. Resected and retrieved. - Diverticulosis in the sigmoid colon and in theascending colon. - Two 3 mm polyps in the rectum. Resected andretrieved. - Non-bleeding internal hemorrhoids. Recommendation: - Await pathology results. - Repeat colonoscopy in 3 years for surveillance. Attending Participation: I personally performed the entire procedure. Electronically signed by Esperanza Alvarez M.D. Esperanza Alvarez MD 06/06/2018 3:27:09 PM Number of Addenda: 0 Note Initiated On: 06/06/2018 2:46 PM Esperanza Alvarez MD ENDOSCOPY PROCEDUR ES Final Result from Last 3 Months or Most Recently Relevant to Health Maintenance Insurance [facility] [place] MEDICARE [facility] EM[facility] Address: [address] [place] [address] [place] [address] [facility] LIFE MEDICARE MEDICARE FOR LIFE MEDICARE FOR LIFE Advance Directives For more information, please contact: [phone] * Full Code (Latest Code Status on File) Date Activated Date Inactivated Comments 06/06/2018 1:58 PM 06/06/2018 5:57 PM Care Teams Outbound Sales Consultant Relationship Specialty Start Date End Date Loren Kaplan MD [address] [address] PCP - General 12/02/20 Demetrius Fuentes MD [address] [address] 03/08/17
--- OUTSIDE RECORDS SUMMARY | 2025-03-02 14:13 | XMS_ITS | Encounter Summary ---
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 Gender Identity Female 03/22/2024 1:06 PM CDT Sexual Orientation Not on file documented as of this encounter Plan of Treatment Not on file documented as of this encounter Procedures Procedure Name Priority Date/Time Associated Diagnosis Comments SCAN - LABS 03/08/2024 documented in this encounter Results * SCAN - LABS (03/08/2024) us Provider Scanning Final Result documented in this encounter Visit Diagnoses Not on filedocumented in this encounter Care Teams Soa Integration Architect Relationship Specialty Start Date End Date Loren Kaplan MD [address] [place] [address] PCP - General 12/02/20 Demetrius Fuentes MD [address] [place] [address] 03/08/17 documented as of this encounter
--- OUTSIDE RECORDS SUMMARY | 2025-03-02 14:13 | XMS_ITS | Encounter Summary ---
Author Organization [facility] Address [address] [place] [address] Phone Care Team Providers Care Director Of Acquisitions Name Role Phone Demetrius Fuentes MD Unavailable [phone] Loren Kaplan MD Primary Care Provider [phone] Encounter Details Date Type Department Care Team (Latest Contact Info) Description 07/14/2023 Orders Only [facility] Scanning, Provider Social History Tobacco Use Types Packs/Day Years Used Date Smoking Tobacco: Never Smokeless Tobacco: Never Alcohol Use Standard Drinks/Week Comments Yes 0 (1 standard drink = 0.6 oz pur e alcohol) 5x/week Comments No Sex and Gender Information Value Date Recorded Sex Assigned at Not on file Legal Sex Female 8:17 PM 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 LEAD Gender Identity Female 03/22/2024 1:06 PM CDT Sexual Orientation Not on file documented as of this encounter Plan of Treatment Not on file documented as of this encounter Procedures Procedure Name Priority Date/Time Associated Diagnosis Comments SCAN - RADIOLOGY/IMAGING 07/14/2023 CARDIOLOGY DOCUMENT SCAN 07/14/2023 documented in this encounter Results * SCAN - RADIOLOGY/IMAGING (07/14/2023) Anatomical Region Laterality Modality Other us Provider Scanning Final Result * Cardiology Document Scan (07/14/2023) Anatomical Region Laterality Modality Other us Provider Scanning [facility] CARDIAC SERVICES PROCEDURES Edited Result - Final documented in this encounter Visit Diagnoses Not on filedocumented in this encounter Care Teams Director Of Acquisitions Relationship Specialty Start Date End Date Loren Kalpan MD [address] [facility] [address] [place] [address] PCP - General 12/02/20 Demetrius Fuentes MD [address] [facility] [address] [place] [address] 03/08/17 documented as of this encounter
--- OUTSIDE RECORDS SUMMARY | 2025-03-02 14:13 | XMS_ITS | Encounter Summary ---
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 ENTRY MIDWIFE Gender Identity Female 03/22/2024 1:06 PM CDT Sexual Orientation Not on file documented as of this encounter Plan of Treatment Not on file documented as of this encounter Procedures Procedure Name Priority Date/Time Associated Diagnosis Comments SCAN - LABS 07/14/2024 documented in this encounter Results * SCAN - LABS (07/14/2024) us Provider Scanning Final Result documented in this encounter Visit Diagnoses Not on filedocumented in this encounter Care Teams Software Design Analyst Relationship Specialty Start Date End Date Loren Kaplan MD [address] [place] [address] PCP - General 12/02/20 Demetrius Fuentes MD [address] [place] [address] 03/08/17 documented as of this encounter
[2025-03-02 15:15] LABS: Anion Gap 8 mmol/L (4-12); Blood Urea Nitrogen 19 mg/dL (7-17); Calcium 9.0 mg/dL (8.4-10.2); Carbon Dioxide 25 mmol/L (22-30); Chloride 104 mmol/L (98-107); Estimated Glomerular Filt Rate > 60; Glucose 102 mg/dL (65-110); Potassium 4.5 mmol/L (3.4-5.0); Sodium 137 mmol/L (137-145)
== END 2025-03-02 13:24 | disposition home or self-care (01) ==
PROVIDERS: PCP Family Medicine; Visit Provider Anesthesiology
DX: E78.5 Hyperlipidemia, unspecified (principal); Z01.818 Encounter for other preprocedural examination; I12.9 Hypertensive chronic kidney disease with stage 1 through stage 4 chronic kidney disease, or unspecified chronic kidney disease; N18.30 Chronic kidney disease, stage 3 unspecified
CPT/HCPCS: 36415; 80048; 93005

== ENCOUNTER 2025-03-09 07:19 | Day surgery (SDC) | payer MEDICARE, OTHER, SELFPAY ==
[2025-03-01 12:33] VITALS: BMI 31.8
--- NOTE | 2025-03-09 07:16 | WPDHPUPDATE1 ---
History and Physical Update Update Date/Time: 03/09/25 07:16 History and Physical has been reviewed, including an updated exam of the patient. There are NO changes in the patient's condition. Risks, benefits, and alternatives have been discussed and questions answered. Patient agrees to proceed with procedure.
--- OUTSIDE RECORDS SUMMARY | 2025-03-09 07:29 | XMS_ITS | Clinical Summary ---
Author Organization [facility] Address [address] [place] [address] Care Team Providers Care Finance Director Name Role Phone Demetrius Fuentes MD Unavailable [phone] Loren Kaplan MD Primary Care Provider [phone] Allergies Active Allergy Reactions Criticality Noted Date [...] 06/08/2024 Assessment & Plan (06/08/2024 11:21 AM AIR BREAKER OPERATOR): See plan under HTN. Dyslipidemia 06/08/2024 Assessment & Plan (06/08/2024 11:18 AM AIR BREAKER OPERATOR): Elevated cholesterol with concern for familial hypercholesterolemia. [...] 05/09/2024 Assessment & Plan (06/08/2024 11:20 AM AIR BREAKER OPERATOR): Hypertension with labile blood pressures and symptomatic [...] on file Legal Sex Female 8:17 PM AIR BREAKER OPERATOR Gender Identity Female 03/22/2024 1:06 PM CDT Sexual Orientation Not on file Obstetrics History Last Filed Vital Signs Vital Sign Reading Time Taken Comments Blood Pressure 155/83 09/12/2024 11:17 AM CDT Pulse 73 09/12/2024 11:17 AM CDT Temperature 36.2 C (97.1 F) 02/05/2024 2:34 AM CDT Respiratory Rate 18 02/05/2024 2:34 AM CDT Oxygen Saturation 97% 06/08/2024 10:19 AM AIR BREAKER OPERATOR Inhaled Oxygen Concentration - - Weight 87.1 [...] pathological fracture presence COLONOSCOPY 06/06/2018 2:46 PM AIR BREAKER OPERATOR from Last 3 Months or Most Recently [...] compared to prior imaging studies performed at [facility] on 03/08/2017, 06/27/2018 and 07/21/2019. There are [...] compared to prior imaging studies performed at [facility] on 03/08/2017, 06/27/2018 and 07/21/2019. There are [...] Resu lt * COLONOSCOPY (06/06/2018 2:46 PM AIR BREAKER OPERATOR) Anatomical Region Laterality Modality Other Narrative Procedure Note Esperanza Alvarez MD - 06/06/2018 2:46 PM CST ENDOSCOPY LAB Patient Name: Brigid Barrios Procedure Date: 06/06/2018 2:46 PM Date of : 1955 Admit Type: Outpatient Age: 62 Gender: Female Attending MD: Esperanza Alvarez MD Room: [place] [address] Note Status: Finalized Procedure Date No Time: [...] Thescope was passed under direct vision. The [id number] introduced through the anus and advanced to the cecum, identified by appendiceal orifice and ileocecal valve.The colonoscopy was performed without difficulty. Thepatient tolerated the procedure well. The quality of the bowel preparation was evaluated using the BBPS ([place] Bowel Preparation Scale) with scores of: Right [...] Most Recently Relevant to Health Maintenance Insurance [facility] [employer] MEDICARE [facility] [place] [address] [facility] MEDICARE MEDICARE FOR LIFE MEDICARE FOR LIFE Advance Directives For more information, please contact: [phone] * Full Code (Latest Code Status on File) Date Activated Date Inactivated Comments 06/06/2018 1:58 PM 06/06/2018 5:57 PM Care Teams Finance Director Relationship Specialty Start Date End Date Loren Kaplan MD [address] [address] PCP - General 12/02/20 Demetrius Fuentes MD [address] [address] 03/08/17
--- OUTSIDE RECORDS SUMMARY | 2025-03-09 07:29 | XMS_ITS | Encounter Summary ---
Author Organization [facility] Address [address] [place] [address] Phone Care Team Providers Care Records Management Director Name Role Phone Demetrius Fuentes MD Unavailable [phone] Loren Kaplan MD Primary Care Provider [phone] Encounter Details Date Type Department Care Team [...] on file Legal Sex Female 8:17 PM PIGMENT PROCESSOR Gender Identity Female 03/22/2024 1:06 PM CDT [...] on filedocumented in this encounter Care Teams Records Management Director Relationship Specialty Start Date End Date Loren Kaplan MD [address] [place] [address] PCP - General 12/02/20 Demetrius Fuentes MD [address] [place] [address] 03/08/17 documented as of this encounter
--- OUTSIDE RECORDS SUMMARY | 2025-03-09 07:29 | XMS_ITS | Encounter Summary ---
Author Organization [facility] Address [address] [place] [address] Phone Care Team Providers Care Layout Designer Name Role Phone Demetrius Fuentes MD Unavailable [phone] Loren Kaplan MD Primary Care Provider [phone] Encounter Details Date Type Department Care Team [...] on file Legal Sex Female 8:17 PM AUCTION CLERK Gender Identity Female 03/22/2024 1:06 PM CDT [...] on filedocumented in this encounter Care Teams Layout Designer Relationship Specialty Start Date End Date Loren Kaplan MD [address] [facility] [address] [place] [address] PCP - General 12/02/20 Demetrius Fuentes MD [address] [facility] [address] [place] [address] 03/08/17 documented as of this encounter
--- OUTSIDE RECORDS SUMMARY | 2025-03-09 07:29 | XMS_ITS | Encounter Summary ---
Author Organization [facility] Address [address] [place] [address] Phone Care Team Providers Care Mimeograph Operator Name Role Phone Demetrius Fuentes MD Unavailable [phone] Loren Kaplan MD Primary Care Provider [phone] Encounter Details Date Type Department Care Team [...] on file Legal Sex Female 8:17 PM FREIGHT BROKER AGENT Gender Identity Female 03/22/2024 1:06 PM CDT [...] on filedocumented in this encounter Care Teams Mimeograph Operator Relationship Specialty Start Date End Date Loren Kaplan MD [address] [place] [address] PCP - General 12/02/20 Demetrius Fuentes MD [address] [place] [address] 03/08/17 documented as of this encounter
--- OUTSIDE RECORDS SUMMARY | 2025-03-09 07:29 | XMS_ITS | Clinical Summary ---
Author Organization [facility] Address [address] [facility] [place] [address] Care Team Providers Care Waterworks Supervisor Name Role Phone Demetrius Fuentes MD Primary Care Provider [phone] Source Comments [facility],non-owned Affiliates and Associated Physician Practices is amultiple site organization consisting of ambulatory clinics and hospital sitesin [place], [place], [place] and [place]. This disclosure is being madepursuant to the Care Everywhere program and may not contain all information available regarding this patient. Last updated 18.[facility] [employer] Allergies Active Allergy Reactions Criticality Noted Date Comments Contrast-Gadolinium Agents For Mri Rash Medium 1 08/10/2016 Medications * Be aware that medications may not be up to date on this document. Alwaysverify current medications with the patient. fluticasone propionate (FLONASE) 50 MCG/ACT nasal spray [place] 1 spray into each nostril DAILY. 3 [...] on file Legal Sex Female 5:52 PM TRAINING DEVELOPMENT SPECIALIST Gender Identity Not on file Sexual Orientation Not on file Last Filed Vital Signs Vital Sign Reading Time Taken Comments Blood Pressure 146/89 07/06/2018 12:02 PM TRAINING DEVELOPMENT SPECIALIST Pulse 76 07/06/2018 12:02 PM TRAINING DEVELOPMENT SPECIALIST Temperature - - Respiratory Rate - - Oxygen Saturation 97% 07/06/2018 9:45 AM TRAINING DEVELOPMENT SPECIALIST Inhaled Oxygen Concentration - - Weight 87.1 kg (192 lb) 07/06/2018 9:45 AM TRAINING DEVELOPMENT SPECIALIST Height 162.6 cm (5' 4) 07/06/2018 9:45 AM TRAINING DEVELOPMENT SPECIALIST Body Mass Index 32.96 07/06/2018 9:45 AM TRAINING DEVELOPMENT SPECIALIST Plan of Treatment Health Maintenance Due Date [...] to complete [place] [address] MEDICARE [employer] MED[employer]ARE Member Subscriber Plan / Payer (Ef fective 2018-Present) Name:Brigid Barrios I Member ID:[id number] Relation to Subscriber:Self Name:Brigid Barrios I Subscriber ID:[id number] Payer ID:Not on file Group ID:Not on file Type:Medicare Address: [address] [address] MEDICARE SUPPLEMENT PAYOR GENERIC MEDICARE Member Subscriber Plan / Payer (Ef fective for All Dates) Name:Brigid Barrios I Member ID:[id number] Relation to Subscriber:Self Name:Brigid Barrios I Subscriber ID:[id number] Payer ID:Not on file Group ID:Not on file Type:Medicare Address: [address] [address] [employer] SELF PAY NO INSURANCE Member Subscriber Plan / Payer (Ef fective for All Dates) Name:Brigid Barrios I Member ID:Not on file Relation to Subscriber:Not on file Name:BRIGID BARRIOS I Subscriber ID:Not on file (Home) Address: [address] [place] [address] Payer ID:Not on file Group ID:Not on file Type:Self Pay Address: [place], [place] * Guarantor: NICOBRIGID Dupont Nixon Account Type Relation to Patient Date of Phone Billing Address Personal/Family [address] [place], [place] [address] [place] [address] MEDICARE MEDICARE Member Subscriber Plan / Payer (Ef fective for All Dates) Name:Brigid Barrios I Member ID:[id number] Relation to Subscriber:Self Name:Brigid Barrios I Subscriber ID:[id number] Payer ID:Not on file Group ID:Not on file Type:Medicare Address: [place] [address] [place] [address] MEDICARE Member Subscriber Plan / Payer (Ef fective for All Dates) Name:Brigid Barrios I Member ID:[id number] Relation to Subscriber:Self Name:Brigid Barrios I Subscriber ID:[id number] Payer ID:Not on file Group ID:Not on file Type:Medicare Address: [address] [address] MEDICARE Member Subscriber Plan / Payer (Ef fective for All Dates) Name:Brigid Barrios I Member ID:[id number] Relation to Subscriber:Self Name:Brigid Barrios I Subscriber ID:[id number] Payer ID:Not on file Group ID:Not on file Type:Medicare Address: [address] [address] [employer] MED[employer] Member Subscriber Plan / Payer (Ef fective for All Dates) Name:Brigid Barrios I Member ID:[id number] Relation to Subscriber:Self Name:Brigid Barrios I Subscriber ID:[id number] Payer ID:Not on file Group ID:Not on file Type:Medicare Address: [address] [address] Care Teams Waterworks Supervisor Relationship Specialty Start Date End Date Demetrius Fuentes MD PCP - General 05/28/17
[2025-03-09 07:48] VITALS: BMI 33.3
[2025-03-09 07:49] VITALS: BP 149/87; PULSE 82; RESP 16; TEMP 36.9; O2SAT 95
--- NOTE | 2025-03-09 08:10 | SUR.PREOP ---
PT HAS A BANDAID TO LT LOWER LEG. PT STATES SHE HAD A SKIN LESION BIOPSY. PT ALSO STATES SHE CALLED DR ROSAS OFFICE TO MAKE THEM AWARE.
[2025-03-09] MEDS: LACTATED RINGERS 1,000 ML 30 ML IV CONT (08:26)
--- NOTE | 2025-03-09 09:06 | WPDANESEPPF ---
Anes - Initial Pre Proc Eval Procedure: Operation Date: 03/09/25 08:45 Proposed Procedures p Partial Plantar Fasciectomy Right Foot - Hugh Chavez Jr., DPM Date/Time: 03/09/25 09:06 Surgeon: Hugh Chavez Jr., DPM Pre Op Diagnosis: Plantar Fasciitis Right Foot Patient Data Age: 69 Gender: F Height: 1.63 m Weight: 88.1 kg Last Vital Signs Temp 98.5 F 03/09/25 07:49 Pulse 82 03/09/25 07:49 Resp 16 03/09/25 07:49 BP 149/87 H 03/09/25 07:49 Pulse Ox 95 03/09/25 07:49 O2 Del Method Room Air 03/09/25 07:49 Allergies Allergy/AdvReac Type Severity Reaction Status Date / Time Iodine and Iodide Containing Allergy Severe Hives Verified 03/09/25 07:37 Produc Home Medications ?Medication ?Instructions ?Recorded ?Confirmed ?Type ezetimibe 10 mg tablet (Zetia) 10 mg PO DAILY 04/05/24 03/09/25 History ergocalciferol (vitamin D2) 1,250 1,250 mcg PO WEEKLY #12 caps 06/01/24 03/09/25 Rx mcg (50,000 unit) capsule (Vitamin D2) albuterol sulfate 90 mcg/actuation See Rx Instructions .Route 06/05/24 03/09/25 Rx aerosol inhaler .COMPLEX #25.5 grams fluticasone propionate 115 2 puff inhalation BID #12 grams 07/14/24 03/09/25 Rx mcg-salmeterol 21 mcg/actuation HFA inhaler (Advair HFA) potassium chloride 10 mEq 10 meq PO DAILY #90 caps 08/15/24 03/09/25 Rx capsule,extended release pantoprazole 40 mg tablet,delayed 40 mg PO DAILY 11/08/24 03/09/25 History release levothyroxine 125 mcg tablet 125 mcg PO DAILY #90 tabs 11/09/24 03/09/25 Rx rosuvastatin 40 mg tablet 40 mg PO DAILY #90 tabs 11/09/24 03/09/25 Rx montelukast 10 mg tablet 10 mg PO DAILY #90 tabs 11/13/24 03/09/25 Rx furosemide 40 mg tablet 20 mg (1/2 x 40 mg) PO QAM #90 tabs 11/17/24 03/09/25 Rx sumatriptan 20 mg/actuation nasal 20 mg intranasal Q2H PRN migraine 11/17/24 03/09/25 History spray headache alprazolam 0.5 mg tablet 0.5 mg PO DAILY PRN Anxiety #30 01/02/25 03/09/25 Rx tabs escitalopram oxalate 20 mg tablet 20 mg PO DAILY #90 tabs 02/13/25 03/09/25 Rx losartan 100 mg tablet 50 mg PO BID 03/01/25 03/09/25 History mecobalamin (vitamin B12) 1,000 1,000 mcg PO DAILY 03/01/25 03/09/25 History mcg chewable tablet oxycodone-acetaminophen 5 mg-325 1 tablet PO Q6H PRN pain #20 tabs 03/08/25 Rx mg tablet (Percocet) Patient hx anesthesia problems: none Family hx anesthesia problems: none Results Review: All pre-operative results and documents have been reviewed as part of the pre-operative evaluation. [facility] Past Medical History Medical History Migraines Syncope Endometriosis Ovarian cyst Adenomatous colon polyp Hyperactive bowel sounds Gas bloat syndrome Irritable bowel syndrome with diarrhea Elevated LFTs US showed fatty liver 08/2022 Pre-diabetes Gastroesophageal reflux Chronic allergic rhinitis Anxiety Iron deficiency anemia Spinal stenosis Hyperlipidemia Hypertension Hypothyroidism Surgical History Surgical History History of colposcopy History of Rachael fundoplication 10/31/21 H/O hernia repair lap paraesophageal hernia repair with Rachael History of incisional hernia repair Date unknown - incision from previous emergent Hx of neck surgery History of esophagogastroduodenoscopy (EGD) Hx of section S/p bilateral myringotomy with tube placement History of appendectomy History of tonsillectomy H/O: hysterectomy H/O cervical discectomy Family History Family History Father Hypertension Heart disease Hyperlipidemia Depression Malignant neoplasm of prostate Cerebrovascular accident Alzheimer disease History of quadruple bypass Sibling Hypertension Hyperlipidemia Depression Cerebrovascular accident Sibling Depression Bipolar disorder Hypertension Hyperlipidemia Other Kidney stone Seizure Skin cancer Social History Social History (Reviewed 11/17/24 @ 10:14 by MADDI Garner Social History: Surrogate medical decision maker: Gulshan Barrios, spouse. Code status: Full code. Smoking status: Never smoker Second hand tobacco smoke exposure: No Alcohol intake: current Drinks per week: 14 Alcohol use details: wine Substance use: never Substance use type: does not use Do You Feel Safe in your Home?: Yes Lack of Transportation: No Lack of Food: Never True Current Housing: I Have Housing Concerned About Future Housing: No Difficulty Paying Gas/Electric Bills: No Difficulty Paying for Meds: No Currently Unemployed: No Education: Bachelor's Degree Difficulty w/ Childcare or Family Care: No Living arrangements: with family Additional living arrangements comments: with sp Occupation/Education: retired Spiritual care concerns: No Anes - Eval Final PreProcedure Day of Procedure 03/09/25 09:06 Heart: regular rate and rhythm Lungs: clear to auscultation Airway: Mallampati scale class II Neurological: alert and oriented Last oral intake: >/= 8 hours ASA classification: III Anesthetic plan: proceed Anesthesia type and monitoring: monitored anesthesia care Results Review: All pre-operative results and documents have been reviewed as part of the pre-operative evaluation. Informed Consent: The patient's anesthetic plan and its attendant risks and benefits were discussed with the patient/family/POA. Questions were solicited and answers provided to the satisfaction of the patient/family/POA.
[2025-03-09] MEDS: ceFAZolin SODIUM 2 GM/20 ML SW SYRINGE IV PUSH (09:10)
[2025-03-09] MEDS: BUPivacaine HCL 0.5% 10 ML AMP INFILTRATE (09:34)
[2025-03-09] MEDS: LIDOCAINE 2% PF LOCAL INJ 5 ML VIAL 10 ML INFILTRATE (09:35)
[2025-03-09 09:53] VITALS: BP 126/68; PULSE 76; RESP 16; O2SAT 95
--- NOTE | 2025-03-09 10:02 | P.OP_ITS ---
Procedure Note - Detailed Date of Procedure 03/09/25 Pre-op Diagnosis Plantar Fasciitis Right Foot Post-op Diagnosis Same Procedure Performed Partial plantar fasciectomy right foot Surgeon Hugh Chavez Jr., DPM Anesthesia MAC and Local Indications Painful right inferior heel Findings Thick narrow plantar fascia right foot Description of Procedure Under mild sedation, the patient was brought in to the operating room, placed on the operating table in the supine position. A pneumatic ankle tourniquet was placed about the patient's ankle. Following general anesthesia, local anesthesia was obtained about the affected lower extremity utilizing 20 mL of a one to mix of 2% Lidocaine plain and 0.5% Marcaine plain to the tibial nerve. The foot was then scrubbed, prepped, and draped in the usual aseptic manner. An Esmarch bandage was then used to exsanguinate the patient's foot and the pneumatic ankle tourniquet was then inflated. Next, an incision was made starting distal to the medial tubercle of the calcaneus extending distally 3cm. All bleeders were cauterized as necessary. Next the dissection was continued down to the plantar fascia it was exposed medially and laterally with [employer] retractors. The plantar fascia was thick narrow and with degeneration. Two thirds of the medial plantar fascia was transected and a 4mm portion was also cut and discarded. The wound site was flushed with sterile saline. The deep subcutaneous tissue was reapproximated with 3.0 Vicryl and the skin was reapproximated with 2.0 Prolene and 3.0 Prolene in Vertical mattress and Simple interrupted suture technique. Upon completion of the procedure, the plantar incision was dressed with adaptic, 4x4 gauze, kerlix and coban. The pneumatic ankle tourniquet was then deflated and a prompt hyperemic response was noted to all digits of the affected foot. A CAM Walker boot was then applied. The patient did very well with the procedure and the anesthesia. The patient was transferred to the recovery room with vital signs stable and vascular status intact to all toes of the affected foot. Following a period of postoperative monitoring, the patient will be discharged home on the following written and oral postoperative instructions: 1. The patient should keep the dressing clean, dry, and intact. Use a cast protector bag with showers. 2. The patient will be non weight bearing with a knee scooter for one week followed by two weeks of protected weight bearing with CAM walker boot. 3. Patient should ice and elevate the affected foot when at rest. 4. The patient is to contact Dr. Chavez for all postop care and if any problems arise. 5. Prescriptions were written for Percocet 5/325 dispensed 40 to be taken 1 p.o. q.4-6 hours as needed for severe pain. . Estimated Blood Loss 1 Drains No Packing No Pathology None sent Complications No immediate complications Condition Stable Disposition Same day
[2025-03-09] MEDS: oxyCODONE HCL (*CRX) 5 MG TAB IR (10:12)
[2025-03-09 10:20] VITALS: BP 137/56; PULSE 71; RESP 18; O2SAT 99
[2025-03-09 10:50] VITALS: BP 141/76; PULSE 66; RESP 16; O2SAT 100
--- NOTE | 2025-03-09 11:16 | SUR.PHASEII ---
1100; spoke with Dr Chavez. Pt does not have a CAM boot. Dr Chavez ordered a post op shoe for pt. Applied
== END 2025-03-09 11:10 | disposition home or self-care (01) ==
PROVIDERS: PCP Family Medicine; Visit Provider Podiatrist Foot & Ankle Surgery
PROC: (CPT 28119; principal; 2025-03-09 08:45)
DX: M72.2 Plantar fascial fibromatosis (principal)
CPT/HCPCS: 28060

== ENCOUNTER 2025-03-12 12:04 | Emergency (ER) | payer MEDICARE, OTHER, SELFPAY ==
--- NOTE | 2025-03-12 12:11 | ED.LOWEXIN ---
HPI - Extremity Injury (Lower) General Chief Complaint: Extremity Injury, Lower Stated Complaint: LT Ankle Injury Time Seen by Provider: 03/12/25 12:18 Source: patient, family, RN notes reviewed and old records reviewed Mode of arrival: wheelchair Limitations: physical limitation History of Present Illness HPI Narrative: 69year old female accompanied by spouse presents to express care per wheelchair with complaints of hitting her left lower leg on a scooter on Wednesday causing a cut on her leg which she reports continues to bleed at intervals. Patient reports that she just had surgery on her right foot for plantar fasciitis and is unable to put weight on her foot and has been using knee scooter to get around. Patient reports that she is taking Aspirin 325 daily due to having the foot surgery as clot precaution. Wound to left lower inner leg noted to be skin tear 3cm X 3cm with part of upper tissue remaining, some oozing of blood from site.Patient reports that tetanus is not up to date. MD complaint: leg injury (left lower leg skin tear) Onset (ago): day(s) (2 days ago) Type of Injury: other (skin tear to left lower inner leg) Place: home Severity scale (1-10): 5 Treatments prior to arrival: bandage Related Data Home Medications ?Medication ?Instructions ?Recorded ?Confirmed ?Last Taken ?Type ezetimibe 10 mg tablet (Zetia) 10 mg PO DAILY 04/05/24 03/09/25 03/08/25 History pantoprazole 40 mg tablet,delayed 40 mg PO DAILY 11/08/24 03/09/25 03/08/25 History release sumatriptan 20 mg/actuation nasal 20 mg intranasal Q2H PRN migraine 11/17/24 03/09/25 Unknown History spray headache losartan 100 mg tablet 50 mg PO BID 03/01/25 03/09/25 03/08/25 History mecobalamin (vitamin B12) 1,000 1,000 mcg PO DAILY 03/01/25 03/09/25 03/05/25 History mcg chewable tablet aspirin 325 mg tablet 325 mg PO DAILY 03/12/25 03/12/25 Unknown History Allergies Allergy/AdvReac Type Severity Reaction Status Date / Time Iodine and Iodide Containing Allergy Severe Hives Verified 03/12/25 12:24 Produc Review of Systems Review of Systems: CONSTITUTIONAL: Denies fever, chills, or sweats. EYES: Denies visual changes, redness, or discharge. ENT: Denies rhinorrhea, congestion, sore throat, or otalgia. CARDIOVASCULAR: Denies chest pain, palpitations, or edema. RESPIRATORY: Denies cough or dyspnea. GASTROINTESTINAL: Denies abdominal pain, nausea, vomiting, or diarrhea. GENITOURINARY: Denies dysuria or hematuria. SKIN: Denies rash or itching. Patient has 3cm X3cm skin tear to left lower inner leg with some of upper flap present some oozing of blood from site, reports difficulty getting it to stop bleeding MUSCULOSKELETAL: Denies back pain, joint pain, or myalgia. NEUROLOGIC: Denies headache, numbness, or weakness. PSYCHIATRIC: Positive history of anxiety or depression. All systems reviewed & are unremarkable except as noted in HPI and below PMFSH Past Medical History Medical History (Updated 03/13/25 @ 08:59 by Bri Izquierdo NP) Chronic renal insufficiency, stage III (moderate) Migraines Syncope Endometriosis Ovarian cyst Adenomatous colon polyp Hyperactive bowel sounds Gas bloat syndrome Irritable bowel syndrome with diarrhea Elevated LFTs US showed fatty liver 08/2022 Pre-diabetes Gastroesophageal reflux Chronic allergic rhinitis Anxiety Iron deficiency anemia Spinal stenosis Hyperlipidemia Hypertension Hypothyroidism Surgical History Surgical History History of colposcopy History of Rachael fundoplication 10/31/21 H/O hernia repair lap paraesophageal hernia repair with Rachael History of incisional hernia repair Date unknown - incision from previous emergent Hx of neck surgery History of esophagogastroduodenoscopy (EGD) Hx of section S/p bilateral myringotomy with tube placement History of appendectomy History of tonsillectomy H/O: hysterectomy H/O cervical discectomy Family History Family History Father Hypertension Heart disease Hyperlipidemia Depression Malignant neoplasm of prostate Cerebrovascular accident Alzheimer disease History of quadruple bypass Sibling Hypertension Hyperlipidemia Depression Cerebrovascular accident Sibling Depression Bipolar disorder Hypertension Hyperlipidemia Other Kidney stone Seizure Skin cancer Social History Social History Social History: Surrogate medical decision maker: Gulshan Barrios, spouse. Code status: Full code. Smoking status: Never smoker Second hand tobacco smoke exposure: No Alcohol intake: current Drinks per week: 14 Alcohol use details: wine Substance use: never Substance use type: does not use Do You Feel Safe in your Home?: Yes Lack of Transportation: No Lack of Food: Never True Current Housing: I Have Housing Concerned About Future Housing: No Difficulty Paying Gas/Electric Bills: No Difficulty Paying for Meds: No Currently Unemployed: No Education: Bachelor's Degree Difficulty w/ Childcare or Family Care: No Living arrangements: with family Additional living arrangements comments: with sp Occupation/Education: retired Spiritual care concerns: No Comments At time of signature, agree with nursing past medical, surgical, social and family history. There is no relevant family history pertinent to the presenting complaint Exam Narrative: GENERAL: Well-appearing, well-nourished, and in no acute distress. HEAD: Normocephalic, atraumatic. EYES: PERRLA and EOMI. ENT: Nares clear, no rhinorrhea or epistaxis. Mucous membranes moist. NECK: Supple.no lymphadenopathy CHEST: Clear to auscultation. No respiratory distress. no cough or congestion noted SAO2 99% on room air HEART: Regular rate and rhythm. No murmur heard. Normal peripheral pulses. ABDOMEN: Soft, nontender, nondistended, normal active bowel sounds. EXTREMITIES: Normal range of motion. No edema. SKIN: Warm, dry, no rash. has had recent surgery to right foot with dressing in place, today for 3cm X3cm skin tear to left lower which has some of top layer of skin present and is oozing some blood. has been dressing at home but continues to ooze concerned. see procedure noted NEURO: No focal deficits. Alert and oriented x3. Course Course Emergency Course: Patient is aware of diagnosis, understands and agrees to treatment plan.? Anticipatory guidance given.? Patient agrees to follow-up as directed and is aware of reasons to seek care at the emergency department. Portions of this record may have been created with voice recognition software Level of Care: Express Care Visit Vital Signs Vital signs: Vital Signs Temperature 36.6 C 03/12/25 12:12 Pulse Rate 76 03/12/25 12:12 Respiratory Rate 18 03/12/25 12:12 Blood Pressure 131/75 03/12/25 12:12 Pulse Oximetry 99 03/12/25 12:12 Oxygen Delivery Room Air 03/12/25 12:12 Temperature 36.6 C 03/12/25 12:12 Pulse Rate 76 03/12/25 12:12 Respiratory Rate 18 03/12/25 12:12 Blood Pressure 131/75 03/12/25 12:12 Pulse Oximetry 99 03/12/25 12:12 Oxygen Delivery Room Air 03/12/25 12:12 Reviewed Procedures Laceration leg: Date: 03/12/25 Time: 12:25 Site: lower extremity Side (If applicable): left Size (cm): 3 Description: other (skin tear) Depth: simple, single layer Local Anesthetic: none Pre-repair: irrigated extensively and other (cleansed with skin integrity) ====== Skin Level ====== Skin layer closed with: steri strips ====== Subcutaneous Layer ====== ====== Muscle Layer ====== ====== Tendon Layer ====== Other Procedure Procedure 1: Other Procedure: 3cm X3cm skin tear to left lower leg which has been oozing blood since occurring since Wednesday. part of the top layer of skin is present. wound cleansed with Skintegrity wound cleanser and saline and patted dry. using sterile q-tip nd some Neosporin ointment upper layer of skin placed over wound as much as possible followed by application of steri-strips over wound followerd by telfa dresssing and coban to secure in place. patient tolerated well. Patient received update on tetanus Boostrix while in clinic. MDM - Extremity Injury (Lower) Differential Diagnosis Differential diagnosis: Likely other (skin tear to left lower inner leg with part of upper skin remaining. wound evaluation) Medical Records Attestation: I reviewed the patient's medical records. Critical Care Time Critical Care Time Critical Care Time: No Discharge Plan Discharge Clinical Impression: ISTAP type 2 skin tear of left lower leg Patient Disposition: Home Condition: Stable Instructions: Antibiotic Form, Skin Adhesive Strips (ED), Acute Wounds (ED) Additional Instructions: Keep the area clean and dry No continuous water contact like dishes or swimming You may bathe and wash you hair caution with hair products or lotions Monitor for any fevers Antibiotics as prescribed all doses dressing of choice recommend Telfa and Coban dressing watch for infection--redness, swelling, drainage Let Steri-Strips fall off on their own recheck with PCP if further concerns or problems If your symptoms persist, change or worsen significantly before you can contact your personal physician then please, without delay, go to the emergency department for further evaluation. Follow-up with PCP in 7-10 days or sooner if needed Follow up with PCP soon in regards to your blood pressure which is elevated above threshold for referral. Blood pressure above 120/80 may indicate pre-hypertension. Patient Language: Swazi Prescriptions: New cephalexin 500 mg capsule 500 mg PO Q8H Qty: 21 0RF No Action aspirin 325 mg tablet 325 mg PO DAILY ezetimibe [Zetia] 10 mg tablet 10 mg PO DAILY sumatriptan 20 mg/actuation spray,non-aerosol 20 mg intranasal Q2H PRN (Reason: migraine headache) Rx Instructions: administer into one nostril as a single dose; if 2nd dose needed,administer into other nostril after at least 2 hrs, NTE 2 doses (40 mg) per episode furosemide 40 mg tablet 20 mg PO QAM Qty: 90 2RF pantoprazole 40 mg tablet,delayed release (DR/EC) 40 mg PO DAILY ergocalciferol (vitamin D2) [Vitamin D2] 1,250 mcg (50,000 unit) capsule 1,250 mcg PO WEEKLY Qty: 12 2RF Patient Comments: TAKES ON MONDAYS albuterol sulfate 90 mcg/actuation HFA aerosol inhaler See Rx Instructions .ROUTE .COMPLEX Qty: 25.5 0RF Dose Instruction: INHALE 1 PUFF BY MOUTH EVERY 4 HOURS NEEDED FOR SHORTNESS OF BREATH OR WHEEZING Rx Instructions: INHALE 1 PUFF BY MOUTH EVERY 4 HOURS NEEDED FOR SHORTNESS OF BREATH OR WHEEZING fluticasone propion-salmeterol [Advair HFA] 115-21 mcg/actuation HFA aerosol inhaler 2 puff inhalation BID Qty: 12 0RF potassium chloride 10 mEq capsule, extended release 10 meq PO DAILY Qty: 90 0RF rosuvastatin 40 mg tablet 40 mg PO DAILY Qty: 90 2RF levothyroxine 125 mcg tablet 125 mcg PO DAILY Qty: 90 1RF Rx Instructions: TAKE 1 TABLET BY MOUTH DAILY montelukast 10 mg tablet 10 mg PO DAILY Qty: 90 2RF Rx Instructions: TAKE 1 TABLET BY MOUTH DAILY alprazolam 0.5 mg tablet 0.5 mg PO DAILY PRN (Reason: Anxiety) Qty: 30 0RF escitalopram oxalate 20 mg tablet 20 mg PO DAILY Qty: 90 1RF Rx Instructions: TAKE 1 TABLET BY MOUTH DAILY losartan 100 mg tablet 50 mg PO BID Rx Instructions: TAKE 1 TABLET BY MOUTH DAILY mecobalamin (vitamin B12) 1,000 mcg tablet,chewable 1,000 mcg PO DAILY oxycodone-acetaminophen [Percocet] 5-325 mg tablet 1 tablet PO Q6H PRN (Reason: pain) Qty: 20 0RF Follow-up/Referrals: Loren Kaplan MD [Primary Care Provider, Family Practice] Time of Disposition: 12:49 Quality Sridhar Coma Scale Eyes: Open Verbal: Oriented and Alert Motor: Follows Commands [place] Coma Total Score: 15
[2025-03-12 12:12] VITALS: BP 131/75; PULSE 76; RESP 18; TEMP 36.6; O2SAT 99
[2025-03-12] MEDS: TETANUS,DIPHTHERIA,AC PERTUSSIS ADULT (0.5 ML) BOOSTRIX IM (12:47)
--- OUTSIDE RECORDS SUMMARY | 2025-03-12 12:50 | XMS_ITS | Encounter Summary ---
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
--- OUTSIDE RECORDS SUMMARY | 2025-03-12 12:50 | XMS_ITS | Clinical Summary ---
Author Organization [facility] Address [address] [place] [address] Care Team Providers Care Boiler Operator Name Role Phone Demetrius Fuentes MD Primary Care Provider [phone] [facility],non-owned Affiliates and Associated Physician Practices is amultiple site organization consisting of ambulatory clinics and hospital sitesin [place], [place], [place] and [place]. This disclosure is being madepursuant to the Care Everywhere program and may not contain all information available regarding this patient. Last updated 18.[facility] [place] Allergies Active Allergy Reactions Criticality Noted Date Comments Contrast-Gadolinium Agents For Mri Rash Medium 1 08/10/2016 Medications * Be aware that medications may not be up to date on this document. Alwaysverify current medications with the patient. fluticasone propionate (FLONASE) 50 MCG/ACT nasal spray [place] 1 spray into each nostril DAILY. 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 Gender Identity Not on file Sexual Orientation Not on file Last Filed Vital Signs Vital Sign Reading Time Taken Comments Blood Pressure 146/89 07/06/2018 12:02 PM MACHINE FARMWORKER Pulse 76 07/06/2018 12:02 PM MACHINE FARMWORKER Temperature - - Respiratory Rate - - Oxygen Saturation 97% 07/06/2018 9:45 AM MACHINE FARMWORKER Inhaled Oxygen Concentration - - Weight 87.1 kg (192 lb) 07/06/2018 9:45 AM MACHINE FARMWORKER Height 162.6 cm (5' 4) 07/06/2018 9:45 AM MACHINE FARMWORKER Body Mass Index 32.96 07/06/2018 9:45 AM MACHINE FARMWORKER Plan of Treatment Health Maintenance Due Date [...] to complete this [place] [place] [address] MEDICARE [facility] MEDICARE MEDICARE SUPPLEMENT PAYOR GENERIC MEDICARE [facility] SELF PAY NO INSURANCE Member Subscriber Plan / Payer (Ef fective for All Dates) Name:Brigid Barrios I Member ID:Not on file Relation to Subscriber:Not on file Name:BRIGID BARRIOS I Subscriber ID:Not on file (Home) Address: [address] [place] [address] Payer ID:Not on file Group ID:Not on file Type:Self Pay Address: [place], [place] * Guarantor: NICOBRIGID Dupont Nixon Account Type Relation to Patient Date of Phone Billing Address Personal/Family [address] [place], [place] [id number] [place] [address] MEDICARE MEDICARE Member Subscriber Plan / Payer (Ef fective for All Dates) Name:Brigid Barrios I Member ID:[id number] Relation to Subscriber:Self Name:Brigid Barrios I Subscriber ID:[id number] Payer ID:Not on file Group ID:Not on file Type:Medicare Address: [place] [address] [place] [address] Member Subscriber Plan / Payer (Ef fective for All Dates) Name:Brigid Barrios I Member ID:Not on file Relation to Subscriber:Self Name:Brigid Barrios I Subscriber ID:Not on file Payer ID:[id number] (NAIC) Group ID:Not on file Type:[employer]Parents R People Address: [address] [address] MEDICARE MEDICARE [facility] MEDICARE Care Teams Boiler Operator Relationship Specialty Start Date End Date Demetrius Fuentes MD PCP - General 05/28/17
--- OUTSIDE RECORDS SUMMARY | 2025-03-12 12:50 | XMS_ITS | Encounter Summary ---
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
--- OUTSIDE RECORDS SUMMARY | 2025-03-12 12:50 | XMS_ITS | Clinical Summary ---
Author Organization [facility] Address [address] [place] [address] Care Team Providers Care Pharmacy Messenger Name Role Phone Demetrius Fuentes MD Unavailable [phone] Loren Kaplan MD Primary Care Provider [phone] Allergies Active Allergy Reactions Criticality Noted Date [...] 06/08/2024 Assessment & Plan (06/08/2024 11:21 AM STAFF SERVICES MANAGER): See plan under HTN. Dyslipidemia 06/08/2024 Assessment & Plan (06/08/2024 11:18 AM STAFF SERVICES MANAGER): Elevated cholesterol with concern for familial hypercholesterolemia. [...] 05/09/2024 Assessment & Plan (06/08/2024 11:20 AM STAFF SERVICES MANAGER): Hypertension with labile blood pressures and symptomatic [...] on file Legal Sex Female 8:17 PM STAFF SERVICES MANAGER Gender Identity Female 03/22/2024 1:06 PM CDT Sexual Orientation Not on file Obstetrics History Last Filed Vital Signs Vital Sign Reading Time Taken Comments Blood Pressure 155/83 09/12/2024 11:17 AM CDT Pulse 73 09/12/2024 11:17 AM CDT Temperature 36.2 C (97.1 F) 02/05/2024 2:34 AM CDT Respiratory Rate 18 02/05/2024 2:34 AM CDT Oxygen Saturation 97% 06/08/2024 10:19 AM STAFF SERVICES MANAGER Inhaled Oxygen Concentration - - Weight 87.1 [...] pathological fracture presence COLONOSCOPY 06/06/2018 2:46 PM STAFF SERVICES MANAGER from Last 3 Months or Most Recently [...] compared to prior imaging studies performed at [facility] on 03/08/2017, 06/27/2018 and 07/21/2019. There are [...] compared to prior imaging studies performed at [facility] on 03/08/2017, 06/27/2018 and 07/21/2019. There are [...] Resu lt * COLONOSCOPY (06/06/2018 2:46 PM STAFF SERVICES MANAGER) Anatomical Region Laterality Modality Other Narrative Procedure Note Esperanza Alvarez MD - 06/06/2018 2:46 PM CST ENDOSCOPY LAB Patient Name: Brigid Barrios Procedure Date: 06/06/2018 2:46 PM Date of : 1955 Admit Type: Outpatient Age: 62 Gender: Female Attending MD: Esperanza Alvarez MD Room: [address] [place] [address] Note Status: Finalized Procedure Date No Time: [...] Thescope was passed under direct vision. The [id number] introduced through the anus and advanced to the cecum, identified by appendiceal orifice and ileocecal valve.The colonoscopy was performed without difficulty. Thepatient tolerated the procedure well. The quality of the bowel preparation was evaluated using the BBPS (Wilbur Bowel Preparation Scale) with scores of: Right [...] Most Recently Relevant to Health Maintenance Insurance [facility] [employer] MEDICARE [facility] [place] [address] [facility] LIFE MEDICARE MEDICARE FOR LIFE MEDICARE FOR LIFE Advance Directives For more information, please contact: [phone] * Full Code (Latest Code Status on File) Date Activated Date Inactivated Comments 06/06/2018 1:58 PM 06/06/2018 5:57 PM Care Teams Pharmacy Messenger Relationship Specialty Start Date End Date Loren Kaplan MD [address] [address] PCP - General 12/02/20 Demetrius Fuentes MD [address] [address] 03/08/17
--- OUTSIDE RECORDS SUMMARY | 2025-03-12 12:50 | XMS_ITS | Encounter Summary ---
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
== END 2025-03-12 12:56 | disposition home or self-care (01) ==
PROVIDERS: Emergency Provider Registered Nurse; PCP Family Medicine
DX: S81.812A Laceration without foreign body, left lower leg, initial encounter (principal); W22.8XXA Striking against or struck by other objects, initial encounter; Z23 Encounter for immunization; I12.9 Hypertensive chronic kidney disease with stage 1 through stage 4 chronic kidney disease, or unspecified chronic kidney disease; N18.30 Chronic kidney disease, stage 3 unspecified; E03.9 Hypothyroidism, unspecified; E78.5 Hyperlipidemia, unspecified; R73.03 Prediabetes; M48.00 Spinal stenosis, site unspecified; K21.9 Gastro-esophageal reflux disease without esophagitis; N80.9 Endometriosis, unspecified; F41.9 Anxiety disorder, unspecified; Z79.82 Long term (current) use of aspirin
CPT/HCPCS: 90471; 90715; 99213; G0463